=== PATIENT | male | born 1940 ===

== ENCOUNTER 2017-12-27 17:02 | Inpatient (IN) | payer OTHER, BC ==
[~2017-12-27] VITALS: Ht 172.7 cm; Wt 67.3 kg
[2017-12-27 19:15] VITALS: BP 146/60; PULSE 68; TEMP 36.4; O2SAT 98; Ht 172.7 cm; Wt 67.3 kg
[2017-12-27] MEDS ORDERED: PRAM0.1212 PO (19:56)
[2017-12-27] MEDS ORDERED: B-COCAP2 PO (19:56)
[2017-12-27] MEDS ORDERED: CARB50TA3 PO (19:56)
[2017-12-27] MEDS ORDERED: ACET-1256 PO (19:56)
[2017-12-27] MEDS ORDERED: POLY335019 PO (19:56)
[2017-12-27] MEDS ORDERED: ASPI81TA28 PO (19:56)
[2017-12-27] MEDS ORDERED: METO25TA56 PO (19:56)
[2017-12-27] MEDS ORDERED: PANT40TA PO (19:56)
[2017-12-27] MEDS ORDERED: KLN/5 PO (19:56)
[2017-12-27] MEDS ORDERED: ASCO500T16 PO (19:56)
[2017-12-27] MEDS ORDERED: CLOP1TAB5 PO (19:56)
[2017-12-27] MEDS ORDERED: LEVO25TA PO (19:56)
[2017-12-27] MEDS ORDERED: DOCU-94 PO (19:56)
[2017-12-27] MEDS ORDERED: HYD10 PO (19:56)
[2017-12-27] MEDS ORDERED: PRMT10 (19:56)
[2017-12-27] MEDS ORDERED: CHOL2000 PO (19:56)
[2017-12-27] MEDS ORDERED: ATOR-24 PO (20:20)
[2017-12-27] MEDS ORDERED: ACETAMINOPHEN 500 MG TAB PO PRN (20:30)
[2017-12-27] MEDS ORDERED: MAGNESIUM HYDROXIDE SUSP 30 ML UDC PO PRN (20:30)
[2017-12-27] MEDS ORDERED: POLYETHYLENE (MIRALAX) 17 GM PACK PO PRN (20:30)
[2017-12-27] MEDS ORDERED: ACETAMINOPHEN 325 MG TAB PO PRN (20:30)
[2017-12-27] MEDS ORDERED: ONDANSETRON INJ 2 MG/ML 2 ML VIAL IV PRN (20:30)
[2017-12-27] MEDS ORDERED: NITROGLYCERIN 0.4 MG SL PER TAB CHARGE SL PRN (20:30)
--- NOTE | 2017-12-27 20:53 | DIAGNOSTIC IMAGING REPORT ---
CHEST ONE VIEW PORTABLE HISTORY: Short of breath. CHF COMPARISON: None. FINDINGS: No pneumothorax. Trace bilateral pleural fusions. Cardiac valve prosthesis is noted. The heart is mildly enlarged. Linear density within the right midlung zone favors subsegmental atelectasis are scarring. Diffuse interstitial and vascular thickening consistent with mild pulmonary edema. IMPRESSION: Mild interstitial pulmonary edema and trace bilateral pleural effusions. Electronically signed by: Eliecer Tavares M.D. 12/27/2017 8:52 PM Dictated Date/Time: 12/27/2017 8:51 PM
[2017-12-27] MEDS ORDERED: PATIENT'S ALLERGY INFO NEEDS ENTERED SCH (21:00)
--- NOTE | 2017-12-27 21:14 | History and Physical ---
History & Physical Date & Time of Service: Dec 27, 2017 at 20:39 Chief Complaint: Fluid Overload, Dialisis Primary Care Physician: Corrine Ying D.O. History of Present Illness The patient is a 77 year old male with a past medical history of Chronic diastolic CHF, Pulmonary HTN, Pulmonary fibrosis, Maite's Granulomatosis, C Diff, Renal Failure on Hemodialysis MWF, Restless leg syndrome, Spinal Stenosis , ITP, COPD, UMER, and CAD with Cardiac arrest in October s/p stent of Circumflex Artery that presents as a direct admission from [facility] with worsening SOB after dialysis this morning. The patient states that he is normally short of breath at his baseline since his cardiac arrest in October, but that is normally with exertion. This afternoon he developed a sudden shortness of breath that was associated with deep breaths, and also caused some right sided chest pain. He is not experiencing the pain at rest, it is not reproducible, sharp in nature , does not radiate, and has persisted throughout the day. The patient has remained comfortable throughout the day on his baseline 4L of oxygen. In the ED at [facility] the patient was found to have a significantly elevated BNP along with X-rays concerning for worsening heart failure. The patient was transferred because Dialysis is not available at their facility over the weekend. The patient denies any fevers, chills, sweats, sputum productions, chest pain with exertion, or any other acute complaints. Past Medical/Surgical History Medical Problems: (1) Shortness of breath Social History Smoking Status: Never Smoker Allergies Coded Allergies: Penicillins (Unverified Allergy, Unknown, HIVES, 12/27/17) Home Medications Scheduled Ascorbic Acid (Ascorbic Acid), 300 MG PO BID Aspirin (Aspirin Ec), 81 MG PO DAILY Atorvastatin (Lipitor), 40 MG PO HS Carbidopa/Levodopa (Sinemet Cr 50MG/200MG), 1 TAB PO DAILY Cholecalciferol (Vitamin D3), 1 CAP PO DAILY Clonazepam (Klonopin), 0.25 MG PO HS Clopidogrel Bisulfate (Plavix), 1 TAB PO DAILY Docusate Sodium (Colace), 1 CAP PO BID Hydrocortisone (Cortef), 10 MG PO DAILY Levothyroxine Sodium (Synthroid), 1 TAB PO DAILY Metoprolol Tartrate (Lopressor) (Lopressor), 12.5 MG PO BID Midodrine (Midodrine HCl), TID Pantoprazole (Protonix), 40 MG PO DAILY Polyethylene Glycol 3350 (Miralax), 17 GM PO DAILY Pramipexole (Mirapex), 1 MG PO DAILY Vitamin B Cmplx/Vitc/Folic Ac (Nephrocaps), 1 CAP PO DAILY Miscellaneous Medications Acetaminophen (Tylenol), 1,000 MG PO Review of Systems Constitutional: + fatigue, No fever, No chills Respiratory: + cough, + wheezing, + shortness of breath, + dyspnea on exertion , No sputum, No dyspnea at rest Cardiovascular: + chest pain, No orthopnea, No palpitations Abdomen: No pain, No nausea, No vomiting, No diarrhea, No constipation Musculoskeletal: No joint pain, No calf pain Genitourinary - Male: No hematuria, No dysuria Neurologic: No paralysis, No weakness Integumentary: No rash, No itch Physical Exam Vital Signs Date Time Temp Pulse Resp B/P (MAP) Pulse Ox O2 Delivery O2 Flow Rate FiO2 12/27/17 19:15 36.4 68 20 146/60 98 Nasal Cannula 4.0 General Appearance: WD/WN, no apparent distress Head: normocephalic, atraumatic Eyes: normal inspection, sclerae normal Neck: supple, no carotid bruits Respiratory/Chest: chest non-tender, no respiratory distress, no accessory muscle use, + crackles (at the bases bilaterally), + wheezing Cardiovascular: regular rate, rhythm, no edema, no gallop Abdomen/GI: normal bowel sounds, non tender, soft Extremities/Musculoskelatal: no calf tenderness, no pedal edema Neurologic/Psych: alert, normal reflexes, oriented x 3 Diagnostics Laboratory Results Microbiology Results 12/27/17 MRSA DNA Surveillance Screen, Received Pending Impression Assessment and Plan The patient is a 77 year old male with a past medical history of Chronic diastolic CHF, Pulmonary HTN, Pulmonary fibrosis, Maite's Granulomatosis, C Diff, Renal Failure on Hemodialysis MWF, Restless leg syndrome, Spinal Stenosis , ITP, COPD, UMER, and CAD with Cardiac arrest in October s/p stent of Circumflex Artery that presents as a direct admission from [facility] with worsening SOB after dialysis this morning Acute Hypoxic Respiratory Failure - Admit to Telemetry - CXR - CT Chest - CBC, BMP, Mag, Phos - Duonebs CHF Exacerbation - Underlying history of Chronic Diastolic CHF - ECHO - Low Sodium Diet - BNP > 35,000 - Consult Nephrology for possible dialysis over the weekend Chest Pain - EKG: Left Anterior Fasicular Block, Normal Sinus Rhythm, No previous EKG for comparison - Troponin at previous facility 0.035, Repeat Troponin q6h x 3 - CXR and CT Chest as above Chronic Renal Failure - Nephrology Consult - BMP - Cr 3.53 - Continue home Midodrine - Continue home Hydrocortisone CAD - Continue home Aspirin, Plavix, and Metoprolol HLD - Continue home Lipitor Restless Leg Syndrome - Continue home Sinemet and Mirapex GERD - Continue home Protonix Hypothyroidism - Continue home Synthroid DVT - Heparin 5,000 units q12 Code Status - Full Resuscitation Advanced Directives Existing Living Will: No Existing Power of Code And Test Clerk: No Resuscitation Status Full Code VTE Prophylaxis Will order VTE Prophylaxis: Yes Resident Tracking Resident Involvement: Resident Care Provided Care Provided: Adult Hospital Medicine
[2017-12-27 21:17] LABS: BASO % 0.2 %; BASO ABS # 0.01 K/uL (0-0.2); EOS % 0.6 %; EOS ABS # 0.03 K/uL (0-0.5); HEMATOCRIT 36.6 % (42-52); HEMOGLOBIN 11.3 g/dL (14.0-18.0); IG# 0.01 K/uL (0.00-0.02); LYMPH % 22.4 %; MEAN CELL VOLUME 97.3 fL (80-100); MEAN CORPUSCULAR HEMOGLOBIN 30.1 pg (25-34); MEAN CORPUSCULAR HGB CONC 30.9 g/dl (32-36); MEAN PLATELET VOLUME 9.6 fL (7.4-10.4); MONO % 8.2 %; MONO ABS # 0.44 K/uL (0.11-0.59); NEUT % 68.4 %; NEUT ABS # 3.66 K/uL (1.4-6.5); PLATELET COUNT 110 K/uL (130-400); RED CELL DISTRIBUTION WIDTH CV 17.7 % (11.5-14.5); RED CELL DISTRIBUTION WIDTH SD 62.7 fL (36.4-46.3); WHITE BLOOD COUNT 5.35 K/uL (4.8-10.8)
[2017-12-27 21:50] LABS: BLOOD UREA NITROGEN 30 mg/dl (7-18); CALCIUM 8.9 mg/dl (8.5-10.1); CARBON DIOXIDE 29 mmol/L (21-32); CREATININE 4.53 mg/dl (0.60-1.40); GLUCOSE 98 mg/dl (70-99); PHOSPHORUS 3.3 mg/dl (2.5-4.9); POTASSIUM 3.9 mmol/L (3.5-5.1); SODIUM 133 mmol/L (136-145)
[2017-12-27] MEDS: CLONAZEPAM 0.5 MG TAB PO SCH (21:58)
[2017-12-27] MEDS: ASCORBIC ACID 500 MG TAB PO SCH (21:58)
[2017-12-27] MEDS: METOPROLOL TARTRATE 25 MG TAB PO SCH (21:59)
[2017-12-27] MEDS: DOCUSATE SODIUM 100 MG CAP PO SCH (21:59)
[2017-12-27] MEDS: ATORVASTATIN 40 MG TAB PO SCH (21:59)
--- NOTE | 2017-12-27 22:42 | DIAGNOSTIC IMAGING REPORT ---
(CHEST) THORAX WITHOUT CT DOSE: 226.48 mGy.cm HISTORY: Atypical Chest Pain, short of breath TECHNIQUE: Multiaxial CT images of the chest were performed without contrast. A dose lowering technique was utilized adhering to the principles of ALARA. COMPARISON: Chest 12/27/2017. FINDINGS: Mild inferior endplate compression deformity at T1. This is likely old. There are multiple healing bilateral anterior rib fractures. There are also healing fractures within the manubrium and mid sternum. No pneumothorax. The central airways are patent. Linear scarlike density along the right midlung zone. Mild diffuse interstitial thickening most pronounced at the lung bases. No pleural or pericardial effusions. The heart is mildly enlarged. Aortic valve prosthesis is noted. There are coronary artery calcifications. Focal consolidation within the right lower lobe posteriorly. This contains a few punctate calcifications. This measures approximately 4.1 cm. This is best seen on image 204. Groundglass appearance throughout the lungs. The partially visualized spleen may be mildly enlarged. The unenhanced liver and adrenal glands are unremarkable. Multiple partially visualized cyst within the right kidney. Subcentimeter left axillary lymph nodes do not meet CT criteria for pathologic involvement. There is enlarged lymph node at the left neck base measuring 1.9 x 1.4 cm. Multiple prominent mediastinal lymph nodes. However, these measure subcentimeter in short axis diameter. Normal caliber thoracic aorta. Small calcified right hilar lymph nodes. IMPRESSION: 1. Healing manubrial, external, and bilateral anterior rib fractures. No acute fractures identified. 2. No pneumothorax. 3. Mild diffuse interstitial thickening with groundglass appearance throughout the lungs. Findings favor a chronic interstitial lung disease. Developing congestive change or an atypical pneumonitis could also a similar appearance but are considered most likely. 4. Focal consolidation within the right lower lobe posteriorly. This may represent round atelectasis. A pneumonia could also have a similar appearance. 5. Multiple prominent mediastinal and left axillary lymph nodes. However, the majority of these are subcentimeter in short axis diameter. There is also a single enlarged lymph node within the left neck base. This could be due to chronic inflammatory/infectious change. A low-grade lymphoma is considered less likely but not entirely excluded. The partially visualized spleen appears be mildly enlarged. Electronically signed by: Eliecer Tavares M.D. 12/27/2017 10:41 PM Dictated Date/Time: 12/27/2017 10:30 PM
[2017-12-27 23:59] VITALS: O2SAT 98
[2017-12-28] VITALS (25 sets, daily range): BP systolic 86–138; BP diastolic 28–62; PULSE 57–99; TEMP 36.3–37.2; O2SAT 91–99
[2017-12-28 03:12] LABS: BASO % 0.2 %; BASO ABS # 0.01 K/uL (0-0.2); EOS ABS # 0.06 K/uL (0-0.5); HEMATOCRIT 35.9 % (42-52); HEMOGLOBIN 11.2 g/dL (14.0-18.0); IG# 0.01 K/uL (0.00-0.02); LYMPH % 18.4 %; LYMPH ABS # 1.13 K/uL (1.2-3.4); MEAN CORPUSCULAR HEMOGLOBIN 30.3 pg (25-34); MEAN CORPUSCULAR HGB CONC 31.2 g/dl (32-36); MONO % 9.9 %; MONO ABS # 0.61 K/uL (0.11-0.59); NEUT % 70.3 %; NEUT ABS # 4.32 K/uL (1.4-6.5); PLATELET COUNT 113 K/uL (130-400); RED CELL DISTRIBUTION WIDTH CV 17.7 % (11.5-14.5); RED CELL DISTRIBUTION WIDTH SD 63.1 fL (36.4-46.3); WHITE BLOOD COUNT 6.14 K/uL (4.8-10.8)
[2017-12-28 03:24] LABS: INR 1.1 (0.9-1.1)
[2017-12-28 03:44] LABS: CALCIUM 8.5 mg/dl (8.5-10.1); CREATININE 5.07 mg/dl (0.60-1.40); POTASSIUM 3.8 mmol/L (3.5-5.1)
[2017-12-28] MEDS: LEVOTHYROXINE 25 MCG TAB PO SCH (06:18)
[2017-12-28] MEDS: MIDODRINE 10 MG TAB PO SCH ×3 (06:18→17:13)
[2017-12-28] MEDS: ALBUT/IPRATROP 3MG/0.5MG NEB 3 ML VIAL INH SCH ×4 (07:05→18:52)
[2017-12-28] MEDS: ASPIRIN 81 MG ECTAB PO SCH (07:52)
[2017-12-28] MEDS: NEPHROCAPS PO SCH (07:53)
[2017-12-28] MEDS: METOPROLOL TARTRATE 25 MG TAB PO SCH ×2 (07:53→23:11)
[2017-12-28] MEDS: DOCUSATE SODIUM 100 MG CAP PO SCH ×2 (07:54→22:35)
[2017-12-28] MEDS: ASCORBIC ACID 500 MG TAB PO SCH ×2 (07:54→22:36)
[2017-12-28] MEDS: PANTOprazole SOD 40 MG TAB PO SCH (07:54)
[2017-12-28] MEDS: CARBIDOPA/LEVODOPA 50/200MG EXT REL TAB PO SCH (07:54)
[2017-12-28] MEDS: HYDROCORTISONE 10 MG TAB PO SCH (07:54)
[2017-12-28] MEDS: PRAMIPEXOLE DIHYDROCHLORIDE 0.5 MG TAB PO SCH (07:55)
[2017-12-28] MEDS: CLOPIDOGREL BISULFATE 75 MG TAB PO SCH (07:55)
[2017-12-28] MEDS: HEPARIN SOD 5000 UNIT/0.5 ML CARP SQ SCH ×2 (09:17→22:47)
[2017-12-28] MEDS ORDERED: HEPARIN SOD (PORCINE) 1000 UNIT/ML 10 ML VIAL IV ONE (10:00)
--- NOTE | 2017-12-28 10:06 | ECHOCARDIOGRAM REPORT ---
*NOTICE TO RECEIVING DEMOCRAT AGENCY This information is strictly Confidential and protected under [place] law. [place] law prohibits you from making any further disclosure of this information unless further disclosure is expressly permitted by the written consent of the person to whom it pertains or is authorized by law. A general authorization for the release of medical or other information is not sufficient for this purpose. Hospital accepts no responsibility if the information is made available to any other person, INCLUDING THE PATIENT. Interpretation Summary * Name: MEGAN GROSS Study Date: 12/28/2017 06:24 AM * Patient Location: 2E\S\E203\S\1 * : 1940 (M/d/yyyy) Gender: Male * Age: 77 yrs Ethnicity: DC * Ordering Physician: Alferdito English * Referring Physician: Torie Diaz * Performed By: Kori Garcia RDCS * * -- Conclusions -- * There is mild concentric left ventricular hypertrophy. * Left ventricular systolic function is normal. * Moderate diastolic dysfunction * There is moderate mitral regurgitation. * Right ventricular systolic pressure is elevated at 50-60mmHg. * There is a percutaneous bioprosthetic aortic valve (Medtronic CoreValve) * The the gradients across the valve are moderately elevated * There is mild to moderate perivalvular regurgitation Procedure Details * A complete two-dimensional transthoracic echocardiogram was performed (2D, M-mode, Doppler and color flow Doppler). Left Ventricle * The left ventricle is normal in size. * There is mild concentric left ventricular hypertrophy. * Ejection Fraction = 60-65%. * Left ventricular systolic function is normal. * Moderate diastolic dysfunction * The left ventricular wall motion is normal. Right Ventricle * The right ventricle is normal in size and function. Atria * The left atrial size is normal. * Right atrial size is normal. Mitral Valve * The mitral valve leaflets appear thickened, but open well. * There is moderate mitral regurgitation. Tricuspid Valve * The tricuspid valve is not well visualized, but is grossly normal. * There is mild tricuspid regurgitation. * Right ventricular systolic pressure is elevated at 50-60mmHg. Aortic Valve * There is a percutaneous bioprosthetic aortic valve (Medtronic CoreValve) The the gradients across the valve are moderately elevated There is mild to moderate perivalvular regurgitation Pulmonic Valve * The pulmonic valve is not well seen, but is grossly normal. Great Vessels * The aortic root is normal size. Pericardium/Pleural * There is no pericardial effusion. Great Vessels * Borderline dilation of the inferior vena cava MMode 2D Measurements and Calculations IVSd 1.2 cm IVSs 1.5 cm LVIDd 4.7 cm LVIDs 3.1 cm LVPWd 1.6 cm LVPWs 1.9 cm IVS/LVPW 0.76 FS 35.2 % EDV(Teich) 103.9 ml ESV(Teich) 36.9 ml EF(Teich) 64.5 % EDV(cubed) 105.8 ml ESV(cubed) 28.8 ml EF(cubed) 72.8 % % IVS thick 26.0 % % LVPW thick 22.3 % LV mass(C)d 260.5 grams LV mass(C)dI 149.5 grams/m\S\2 LV mass(C)s 201.9 grams LV mass(C)sI 115.8 grams/m\S\2 SV(Teich) 67.0 ml SI(Teich) 38.5 ml/m\S\2 SV(cubed) 77.0 ml SI(cubed) 44.2 ml/m\S\2 Ao root diam 3.0 cm Ao root area 7.0 cm\S\2 ACS 1.4 cm LA dimension 3.8 cm LA/Ao 1.3 LVAd ap4 33.6 cm\S\2 LVLd ap4 8.8 cm EDV(MOD-sp4) 109.8 ml EDV(sp4-el) 109.0 ml LVAs ap4 17.5 cm\S\2 LVLs ap4 7.9 cm ESV(MOD-sp4) 34.1 ml ESV(sp4-el) 33.0 ml EF(MOD-sp4) 68.9 % EF(sp4-el) 69.8 % LVAd ap2 29.9 cm\S\2 LVLd ap2 8.9 cm EDV(MOD-sp2) 86.1 ml EDV(sp2-el) 85.4 ml LVAs ap2 17.7 cm\S\2 LVLs ap2 8.0 cm ESV(MOD-sp2) 37.2 ml ESV(sp2-el) 33.5 ml EF(MOD-sp2) 56.7 % EF(sp2-el) 60.7 % LVLd %diff 1.4 % EDV(MOD-bp) 97.5 ml LVLs %diff 0.54 % ESV(MOD-bp) 35.3 ml EF(MOD-bp) 63.8 % SV(MOD-sp4) 75.7 ml SI(MOD-sp4) 43.4 ml/m\S\2 SV(MOD-sp2) 48.8 ml SI(MOD-sp2) 28.0 ml/m\S\2 SV(MOD-bp) 62.2 ml SI(MOD-bp) 35.7 ml/m\S\2 SV(sp4-el) 76.0 ml SI(sp4-el) 43.6 ml/m\S\2 SV(sp2-el) 51.9 ml SI(sp2-el) 29.8 ml/m\S\2 Doppler Measurements and Calculations MV E max alexsandra 146.7 cm/sec MV A max alexsandra 79.8 cm/sec MV E/A 1.8 MV dec time 0.22 sec Ao V2 max 335.6 cm/sec Ao max PG 45.3 mmHg Ao max PG (full) 35.9 mmHg AI max alexsandra 273.7 cm/sec AI max PG 30.0 mmHg AI dec slope 161.6 cm/sec\S\2 AI P1/2t 496.2 msec LV V1 max PG 9.4 mmHg LV V1 max 153.1 cm/sec MR max alexsandra 543.5 cm/sec MR max PG 118.2 mmHg MR mean alexsandra 415.4 cm/sec MR mean PG 74.9 mmHg MR VTI 183.2 cm PA V2 max 72.2 cm/sec PA max PG 2.1 mmHg TR max alexsandra 320.5 cm/sec
--- NOTE | 2017-12-28 10:33 | Nephrology Consultation ---
Nephrology Consultation Date & Providers Date of Consultation: Dec 28, 2017. Primary Care Provider: Corrine Ying D.O. Referring Provider: Reason for Consultation ESRD History of Present Illness Mr. 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 Sukhdeep has been on dialysis for 12 years. He receives dialysis at [facility] on a MWF schedule. The patient completed his treatment yesterday as scheduled. Unfortunately, he noted worsening shortness of breath and right sided chest pain during treatment. He was admitted to [facility] for additional evaluation. The patient was transferred from [facility] due to potential need for dialysis which could not be provided at . I spoke with nursing staff at [facility] this morning. EDW has cameron 64.5 kg. The patient presented to the unit at 64.4 kg yesterday. UF was 0. No fluid was removed on Saturday either. Nursing notes that due to chronic hypotension, Sukhdeep does not tolerate fluid removal well. Midodrine has been prescribed but the patient does occasionally forget to take the medication. Sukhdeep denies significant shortness of breath prior to yesterday. He describes a fairly rapid and progressive onset of symptoms. Chest pain was right sided and pleuritic. He has had similar episodes of chest pain in the past but none in the past several months. He denies significant orthopnea. He denies fevers or chills. Sukhdeep was admitted to [facility] for 24 days in October with cardiac arrest. PCI to circumflex was performed. The patient is currently in cardiac rehab. Medical history is notable for chronic diastolic CHF, pulmonary hypertension, chronic lung disease attributed to chronic interstitial disease, documented COPD and asbestos exposure, granulomatosis with polyangiitis, ESRD, Parkinson disease, spinal stenosis. Sukhdeep receives dialysis at [facility] on a MWF schedule. Typical treatment is 3.5 hours. He has a functional LUE AVF. Dialysis is complicated by intradialytic hypotension. Past Medical/Surgical History Medical: Recurrent pneumonia Coronary artery disease Reported diastolic CHF Documented pulmonary hypertension ESRD on HD Granulomatosis with polyangiitis Parkinsonism Autonomic insufficiency Interstitial lung disease Chronic hypoxia, O2 4 L at baseline Hypothyroidism UMER COPD Surgical: cardiac PCI, AVF Allergies Coded Allergies: Penicillins (Unverified Allergy, Unknown, HIVES, 12/27/17) Inpatient Medications Current Inpatient Medications Medications (Trade) Dose Ordered Sig/Crys Route Start Time Stop Time Status Last Admin Dose Admin Magnesium Hydroxide (Milk Of Magnesia Susp) 30 ml Q12H PRN PO 12/27/17 20:30 01/26/18 20:29 Ondansetron HCl (Zofran Inj) 4 mg Q6H PRN IV 12/27/17 20:30 01/26/18 20:29 Nitroglycerin (Nitrostat Tab) 0.4 mg UD PRN SL 12/27/17 20:30 01/26/18 20:29 Polyethylene (Miralax Powder Packet) 17 gm DAILY PRN PO 12/27/17 20:30 01/26/18 20:29 Acetaminophen (Tylenol Tab) 1,000 mg Q8H PRN PO 12/27/17 20:30 01/26/18 20:29 Ascorbic Acid (Vitamin C Tab) 500 mg BID PO 12/27/17 21:00 01/26/18 20:59 12/28/17 07:54 500 MG Aspirin (Ecotrin Tab) 81 mg DAILY PO 12/28/17 09:00 01/27/18 08:59 12/28/17 07:52 81 MG Atorvastatin Calcium (Lipitor Tab) 40 mg HS PO 12/27/17 21:00 01/26/18 20:59 12/27/17 21:59 40 MG Carbidopa/Levodopa (Sinemet Cr 50/ 200MG Tab) 1 tab DAILY PO 12/28/17 09:00 01/27/18 08:59 12/28/17 07:54 1 TAB Clonazepam (Klonopin Tab) 0.25 mg HS PO 12/27/17 21:00 01/26/18 20:59 12/27/17 21:58 0.25 MG Clopidogrel Bisulfate (plAVix TAB) 75 mg DAILY PO 12/28/17 09:00 01/27/18 08:59 12/28/17 07:55 75 MG Docusate Sodium (coLACE CAP) 100 mg BID PO 12/27/17 21:00 01/26/18 20:59 12/28/17 07:54 100 MG Hydrocortisone (Cortef Tab) 10 mg DAILY PO 12/28/17 09:00 01/27/18 08:59 12/28/17 07:54 10 MG Levothyroxine Sodium (Synthroid Tab) 25 mcg DAILYBB PO 12/28/17 06:00 01/27/18 05:59 12/28/17 06:18 25 MCG Metoprolol Tartrate (Lopressor Tab) 12.5 mg BID PO 12/27/17 21:00 01/26/18 20:59 12/28/17 07:53 12.5 MG Midodrine (Proamatine Tab) 10 mg TID@0600,1200,1800 PO 12/28/17 06:00 01/27/18 05:59 12/28/17 06:18 10 MG Pantoprazole Sodium (Protonix Tab) 40 mg DAILY PO 12/28/17 09:00 01/27/18 08:59 12/28/17 07:54 40 MG Pramipexole Dihydrochloride (miraPEX TAB) 1 mg DAILY PO 12/28/17 09:00 01/27/18 08:59 12/28/17 07:55 1 MG Vitamin B Complex/ Vit C/Folic Acid (Nephrocaps) 1 cap DAILY PO 12/28/17 09:00 01/27/18 08:59 12/28/17 07:53 1 CAP Albuterol/ Ipratropium (Duoneb) 3 ml QIDR INH 12/28/17 08:00 01/27/18 07:59 12/28/17 07:05 3 ML Heparin Sodium (Porcine) (Heparin Sq 5000 Unit/0.5ml) 5,000 unit Q12 SQ 12/28/17 09:00 01/27/18 08:59 12/28/17 09:17 5,000 UNIT Social History Smoking Status: Never Smoker suffering from dementia Review of Systems A complete review of systems was performed. Pertinent positives are noted above. All other systems are negative. Physical Exam Date Time Temp Pulse Resp B/P (MAP) Pulse Ox O2 Delivery O2 Flow Rate FiO2 12/28/17 08:00 71 12/28/17 08:00 96 Nasal Cannula 4.0 12/28/17 07:01 66 18 97 Nasal Cannula 4.0 12/28/17 06:49 37.2 66 12 124/62 (82) 95 12/28/17 03:59 36.8 66 16 124/62 (82) 98 4.0 12/28/17 00:29 122/56 (78) 12/28/17 00:03 37.1 57 18 103/38 (59) 99 4.0 12/27/17 23:59 98 Nasal Cannula 4.0 12/27/17 19:15 36.4 68 20 146/60 98 Nasal Cannula 4.0 General Appearance: no apparent distress, + thin Head: normocephalic, atraumatic Eyes: normal inspection, sclerae normal ENT: normal ENT inspection, pharynx normal Neck: supple, no JVD Respiratory/Chest: no respiratory distress, no accessory muscle use, + rales Cardiovascular: regular rate, rhythm, no gallop Abdomen/GI: non tender, soft, + splenomegaly Extremities/Musculoskelatal: normal inspection, no pedal edema, + pertinent finding (LUE BC AVF with thrill and bruit) Neurologic/Psych: alert, normal mood/affect Laboratory Results Last 24 Hours Test 12/27/17 20:58 12/28/17 02:59 12/28/17 03:04 12/28/17 09:05 White Blood Count 5.35 K/uL 6.14 K/uL Red Blood Count 3.76 M/uL 3.70 M/uL Hemoglobin 11.3 g/dL 11.2 g/dL Hematocrit 36.6 % 35.9 % Mean Corpuscular Volume 97.3 fL 97.0 fL Mean Corpuscular Hemoglobin 30.1 pg 30.3 pg Mean Corpuscular Hemoglobin Concent 30.9 g/dl 31.2 g/dl Platelet Count 110 K/uL 113 K/uL Mean Platelet Volume 9.6 fL 10.0 fL Neutrophils (%) (Auto) 68.4 % 70.3 % Lymphocytes (%) (Auto) 22.4 % 18.4 % Monocytes (%) (Auto) 8.2 % 9.9 % Eosinophils (%) (Auto) 0.6 % 1.0 % Basophils (%) (Auto) 0.2 % 0.2 % Neutrophils # (Auto) 3.66 K/uL 4.32 K/uL Lymphocytes # (Auto) 1.20 K/uL 1.13 K/uL Monocytes # (Auto) 0.44 K/uL 0.61 K/uL Eosinophils # (Auto) 0.03 K/uL 0.06 K/uL Basophils # (Auto) 0.01 K/uL 0.01 K/uL RDW Standard Deviation 62.7 fL 63.1 fL RDW Coefficient of Variation 17.7 % 17.7 % Immature Granulocyte % (Auto) 0.2 % 0.2 % Immature Granulocyte # (Auto) 0.01 K/uL 0.01 K/uL Sodium Level 133 mmol/L 135 mmol/L Potassium Level 3.9 mmol/L 3.8 mmol/L Chloride Level 95 mmol/L 96 mmol/L Carbon Dioxide Level 29 mmol/L 29 mmol/L Anion Gap 9.0 mmol/L 10.0 mmol/L Blood Urea Nitrogen 30 mg/dl 35 mg/dl Creatinine 4.53 mg/dl 5.07 mg/dl Est Creatinine Clear Calc Drug Dose 12.0 ml/min 10.7 ml/min Estimated GFR () 13.3 11.6 Estimated GFR (Non- 11.5 10.0 BUN/Creatinine Ratio 6.6 6.8 Random Glucose 98 mg/dl 85 mg/dl Calcium Level 8.9 mg/dl 8.5 mg/dl Phosphorus Level 3.3 mg/dl Magnesium Level 2.3 mg/dl Troponin I 0.025 ng/ml 0.020 ng/ml Pro-B-Type Natriuretic Peptide > 79020 pg/ml Prothrombin Time 11.5 SECONDS Prothromb Time International Ratio 1.1 Impression (1) ESRD (end stage renal disease) on dialysis (2) Anemia (3) Shortness of breath (4) Chest pain (5) Coronary artery disease (6) Hypotension (7) Autonomic instability (8) Chronic lung disease (9) Granulomatosis with polyangiitis with renal involvement Mr. Maier is a 77 year-old male with coronary artery disease, chronic heart failure, pulmonary hypertension, chronic interstitial lung disease and scarring, history of granulomatosis with polyangiitis, ESRD attributed to GPA, hypothyroidism, Parkinsonism, autonomic insufficiency, and recurrent pneumonia. He was admitted to [facility] with chest pain and shortness of breath. CXR and CT of the chest were personally reviewed. The patient describes right sided pleuritic chest pain. Shortness of breath improved slightly since yesterday with bronchodilators. Additional records regarding the patient's history of chronic lung disease will be necessary. Review of the CT scan is notable for significant chronic changes and scarring. Adenopathy and splenomegaly also noted. A possible evolving RML pneumonia cannot be excluded. Interstitial changes are notable. Blood pressure and volume status appears appropriate. UF with HD complicated by intradialytic hypotension. The patient is maintained on midodrine. An additional HD treatment will be provided today for fluid removal. However, clinical assessment is not entirely consistent with volume overload. Recommendations ESRD: -- HD today for additional UF as tolerated, orders entered into EMR and communicated to HD nurse clinical applications specialist -- 3 hours, 3K -- Renal diet -- Document I/O's and daily metabolic profile -- EDW reported at 64.5 kg Hypotension: -- Midodrine 10 mg preHD Anemia: -- Chronic, stable -- No need for additional KENDRA Chronic lung disease: -- Obtain outside records
[2017-12-28] MEDS ORDERED: OPTIRAY 320 IV PRN (15:00)
--- NOTE | 2017-12-28 15:44 | DIAGNOSTIC IMAGING REPORT ---
CHEST CTA for PULMONARY ARTERIES CT DOSE: 353.52 mGy.cm HISTORY: Short of breath. Atypical chest pain. Assess for pulmonary embolus. TECHNIQUE: Multiaxial CT images of the chest were performed following the intravenous administration of contrast to evaluate the pulmonary arteries. Maximal intensity projection images were also obtained. A dose lowering technique was utilized adhering to the principles of ALARA. COMPARISON STUDY: Chest CT 12/27/2017. FINDINGS: There again noted healing manubrial, sternal, and bilateral anterior rib fractures. Cholelithiasis. The visualized liver, spleen, and adrenal glands are unremarkable. Multiple cysts seen throughout the atrophic kidneys. A few mildly enlarged mediastinal and left axillary lymph nodes are again noted. There is also an enlarged lymph node within the left neck base measuring 1.9 x 1.4 cm. This remains unchanged. The heart is enlarged. Trace bilateral pleural effusions, unchanged. Aortic valve prosthesis is again noted. No pneumothorax. The central airways are patent. Linear scarlike density within the right midlung zone is again noted. There is diffuse interstitial thickening and a groundglass appearance throughout the lungs. This is most pronounced at the lung bases. Stable focal consolidation within the right lower lobe posteriorly. This contains a few punctate calcifications. The more focal component of this consolidation measures approximately 4.1 cm in length. Normal caliber thoracic aorta with no evidence for dissection. A few small calcified right hilar lymph nodes. Suboptimal evaluation of some of the left lower lobe and lingular segmental and subsegmental pulmonary arteries due to the respiratory motion artifact. However, no definite filling defects within the pulmonary arteries to suggest pulmonary embolus. IMPRESSION: 1. No evidence for pulmonary embolus with limitations as described above. 2. Otherwise, no significant change compared to the prior study. 3. Healing manubrial, sternal, and bilateral anterior rib fractures. No pneumothorax. 3. Mild diffuse interstitial thickening with groundglass appearance throughout the lungs. This may represent a chronic initial lung disease. Mild pulmonary edema or an atypical pneumonitis could also have a similar appearance. 4. No change in the focal consolidation within the right lower lobe posteriorly. This favors round atelectasis. A pneumonia could also a similar appearance. 6. Stable prominent mediastinal and left axillary lymph nodes. Electronically signed by: Eliecer Tavares M.D. 12/28/2017 3:42 PM Dictated Date/Time: 12/28/2017 3:30 PM
[2017-12-28 15:55] LABS: BASO % 0.1 %; BASO ABS # 0.01 K/uL (0-0.2); EOS % 0.3 %; EOS ABS # 0.02 K/uL (0-0.5); HEMATOCRIT 41.9 % (42-52); HEMOGLOBIN 13.2 g/dL (14.0-18.0); IG# 0.07 K/uL (0.00-0.02); LYMPH % 47.9 %; LYMPH ABS # 3.72 K/uL (1.2-3.4); MEAN CELL VOLUME 96.5 fL (80-100); MEAN CORPUSCULAR HEMOGLOBIN 30.4 pg (25-34); MEAN PLATELET VOLUME 10.1 fL (7.4-10.4); MONO % 3.6 %; MONO ABS # 0.28 K/uL (0.11-0.59); NEUT % 47.2 %; NEUT ABS # 3.66 K/uL (1.4-6.5); PLATELET COUNT 149 K/uL (130-400); RED CELL DISTRIBUTION WIDTH CV 17.8 % (11.5-14.5); RED CELL DISTRIBUTION WIDTH SD 63.6 fL (36.4-46.3); WHITE BLOOD COUNT 7.76 K/uL (4.8-10.8)
[2017-12-28 16:00] LABS: MEAN CORPUSCULAR HGB CONC 31.5 g/dl (32-36)
[2017-12-28] MEDS ORDERED: HYDROCORTISONE 10 MG TAB PO ONE (16:00)
[2017-12-28 16:26] LABS: ALKALINE PHOSPHATASE 117 U/L (45-117); ALT/SGPT 6 U/L (12-78); AST/SGOT 18 U/L (15-37); BLOOD UREA NITROGEN 44 mg/dl (7-18); CALCIUM 8.7 mg/dl (8.5-10.1); CARBON DIOXIDE 25 mmol/L (21-32); CREATININE 6.26 mg/dl (0.60-1.40); GLUCOSE 138 mg/dl (70-99); POTASSIUM 4.4 mmol/L (3.5-5.1); SODIUM 133 mmol/L (136-145)
[2017-12-28] MEDS ORDERED: LEVOFLOXACIN 750MG / D5W IV ONE (18:00)
[2017-12-28] MEDS ORDERED: AZTREONAM 2000 MG in DEXTROSE 5% 100 ML IV ONE (18:00)
[2017-12-28] MEDS ORDERED: AZTREONAM CONSULT ACTIVE PRN (18:00)
[2017-12-28] MEDS ORDERED: LEVOFLOXACIN CONSULT ACTIVE PRN (18:00)
--- NOTE | 2017-12-28 18:46 | Progress Note ---
Progress Note Date of Service Dec 28, 2017. Progress Note Code purple note - late entry: Responded to code purple earlier this afternoon. Pt had gone to the CT scanner for CTA chest, PE protocol, due to right-sided pleuritic chest discomfort. Per staff he underwent the CTA without apparent reaction to the IV contrast and had finished the study. He was being helped up to a sitting position on the CT scanner table when he reported feeling dizzy, weak, and fatigued. Staff lowered him back down to the table in a supine position. He never lost consciousness, never lost his pulse, fingerstick blood sugar was > 100, and O2 sats were found to be in the 80s on 4 L NC. My initial exam while he was in CT - gen - weak appearing, modestly pale heart - tachy, irregular lungs - rales bases ext - no edema, pulses 2+ b/l While examining him he complained of "chest pressure" in the central region of the chest. This was DIFFERENT from the right-sided chest pain he had had earlier in the day. Without any specific intervention the pressure self-resolved even before leaving the CT scan room. Vitals continued to be stable. He received about a 250cc bolus of NS with improvement in BP from high 90s to the low 120s. EKG - my reading - sinus tach, ectopy, new T wave inversions I/AVL and modest ST segment depression anterolateral leads CTA chest ultimately returned with NO PE but he continues to have a focal RLL infiltrate Imp: Near-syncope EKG changes in patient with known CAD chest pain and chest pressure Plan: return patient to telemetry will repeat his EKG upon return to his room serial troponins recheck cbc, bmp, lfts check lactate and procalcitonin low threshold for starting IV antibiotics for possible RLL pneumonia I updated Dr. Campa from nephrology. Will also plan on involving cardiology in his care. total time about 60 minutes critical care Renato Garcia MD [id number]
--- NOTE | 2017-12-28 19:59 | Progress Note ---
Subjective Date of Service: Dec 28, 2017. Subjective Pt evaluation today including: conversation w/ patient, conversation w/ family (son by phone), physical exam, chart review, lab review, review of studies (CT chest x 2 / echo), conversation w/ remediation bioanalytics consultant (nephrology, cardiology), review of inpatient medication list Pain: chest pain - pleuritic - right side - but improved today PO Intake: fair patient reports his dyspnea and right-sided pleuritic chest pain started yesterday AFTER hemodialysis in [place] he denies anorexia or feeling ill over the past week denies fever he has a hard time remembering all the details of his 3-week hospital stay in [place] in October/November of this year he can recall he had a cardiac arrest lasting 17 minutes before mosque of circulation please see separate code purple note from today telemetry overnight - ?brief runs of a. fib; otherwise NSR, sinus tach, ectopy late in the day (about 1945) I spoke with pt's son, Irving, by phone he reported he follows with a transplant doctor in [place] but the transplant failed after 1 year his son also mentioned that one time in a [place] he "had a really bad reaction after getting dye" (for a CT scan) his son can't recall the details (he couldn't say if his father had gotten rash , angioedema, etc) patient reports he follows with a senior cobol developer in [place] but he can't remember why he does remember he has been on [place] O2 for about 1 year lastly, patient recalls having a. fib "a long time ago" and thinks he took medication to control it Review of Systems Constitutional: + fatigue, No fever, No chills Respiratory: + shortness of breath Cardiac: + see HPI, + chest pain, No orthopnea, No PND, No edema Abdomen: No pain, No nausea, No vomiting Objective Vital Signs Date Time Temp Pulse Resp B/P (MAP) Pulse Ox O2 Delivery O2 Flow Rate FiO2 12/28/17 07:01 66 18 97 Nasal Cannula 4.0 12/28/17 06:49 37.2 66 12 124/62 (82) 95 12/28/17 03:59 36.8 66 16 124/62 (82) 98 4.0 12/28/17 00:29 122/56 (78) 12/28/17 00:03 37.1 57 18 103/38 (59) 99 4.0 12/27/17 23:59 98 Nasal Cannula 4.0 12/27/17 19:15 36.4 68 20 146/60 98 Nasal Cannula 4.0 Physical Exam General Appearance: no apparent distress, + thin ENT: pharynx normal Neck: + JVD Respiratory/Chest: no respiratory distress, no accessory muscle use, + crackles (mild, right base) Cardiovascular: regular rate, rhythm, no gallop, + systolic murmur (2/6 LSB) Abdomen: normal bowel sounds, non tender, soft, no organomegaly Extremities: no pedal edema Neurologic/Psychiatric: alert, + pertinent finding (mild confusion) Skin: + pertinent finding (AV fistula, left arm, with positive thrill ) Laboratory Results Last 24 Hours Test 12/27/17 20:58 12/28/17 02:59 12/28/17 03:04 White Blood Count 5.35 K/uL 6.14 K/uL Red Blood Count 3.76 M/uL 3.70 M/uL Hemoglobin 11.3 g/dL 11.2 g/dL Hematocrit 36.6 % 35.9 % Mean Corpuscular Volume 97.3 fL 97.0 fL Mean Corpuscular Hemoglobin 30.1 pg 30.3 pg Mean Corpuscular Hemoglobin Concent 30.9 g/dl 31.2 g/dl Platelet Count 110 K/uL 113 K/uL Mean Platelet Volume 9.6 fL 10.0 fL Neutrophils (%) (Auto) 68.4 % 70.3 % Lymphocytes (%) (Auto) 22.4 % 18.4 % Monocytes (%) (Auto) 8.2 % 9.9 % Eosinophils (%) (Auto) 0.6 % 1.0 % Basophils (%) (Auto) 0.2 % 0.2 % Neutrophils # (Auto) 3.66 K/uL 4.32 K/uL Lymphocytes # (Auto) 1.20 K/uL 1.13 K/uL Monocytes # (Auto) 0.44 K/uL 0.61 K/uL Eosinophils # (Auto) 0.03 K/uL 0.06 K/uL Basophils # (Auto) 0.01 K/uL 0.01 K/uL RDW Standard Deviation 62.7 fL 63.1 fL RDW Coefficient of Variation 17.7 % 17.7 % Immature Granulocyte % (Auto) 0.2 % 0.2 % Immature Granulocyte # (Auto) 0.01 K/uL 0.01 K/uL Sodium Level 133 mmol/L 135 mmol/L Potassium Level 3.9 mmol/L 3.8 mmol/L Chloride Level 95 mmol/L 96 mmol/L Carbon Dioxide Level 29 mmol/L 29 mmol/L Anion Gap 9.0 mmol/L 10.0 mmol/L Blood Urea Nitrogen 30 mg/dl 35 mg/dl Creatinine 4.53 mg/dl 5.07 mg/dl Est Creatinine Clear Calc Drug Dose 12.0 ml/min 10.7 ml/min Estimated GFR () 13.3 11.6 Estimated GFR (Non- 11.5 10.0 BUN/Creatinine Ratio 6.6 6.8 Random Glucose 98 mg/dl 85 mg/dl Calcium Level 8.9 mg/dl 8.5 mg/dl Phosphorus Level 3.3 mg/dl Magnesium Level 2.3 mg/dl Troponin I 0.025 ng/ml 0.020 ng/ml Pro-B-Type Natriuretic Peptide > 64536 pg/ml Prothrombin Time 11.5 SECONDS Prothromb Time International Ratio 1.1 Assessment and Plan Complicated 77yo male with: 1. s/p code purple today - his symptoms were that of near-syncope. He never developed rash, urticaria, angioedema, or significant hypotension. His BP was in the 90s during the event which is where his BP was prior to the CT scan. The event could have been coincidental with the time of the contrast load. If this was a contrast reaction it certainly was atypical. His son recalls his father having had something happening to him post-contrast in [place]. I will attempt to discuss this with a radiologist prior to labeling him as contrast allergic. If indeed the patient is septic from pneumonia this may have been a presyncopal event in the setting of such. 2. possible sepsis 2nd to right-sided pneumonia - blood cx's at [facility] are thus far negative. Lactate and procalcitonin are mildly high. Will treat for presumed pneumonia with aztreonam and levaquin (due to PCN allergy). Defer on MRSA coverage as [employer] swab is negative. 3. abnormal EKG, chest pressure, h/o CAD - during the code purple today the patient had chest pressure and EKG during that event showed T wave inversions in I/AVL and ST segment depressions in the anterolateral leads. The pressure resolved on its own and a repeat EKG showed resolution of these changes. ECHO today shows no WMA. I spoke with Dr. Helton who will see him in consult tomorrow. Serial troponins; defer on heparin infusion unless he has recurrent symptoms, recurrent ST segment changes, or his troponin rises significantly. Otherwise cont asa, plavix, statin, etc. 4. chronic hypoxic respiratory failure on home O2 - exact etiology of his need for home O2? Pulmonary HTN? Pulmonary fibrosis? I am uncertain if the chronic cortef use is for pulmonary fibrosis or some other condition. Either way, in light of #2, will give 30mg of additional cortef today. 5. 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 6. possible acute/chronic diastolic CHF - will receive additional HD today. 7. h/o ITP - noted - repeat platelets later today were acceptable. 8. COPD - w/o exacerbation at this time. 9. hypothyroidism - continue synthroid; await [place] records to see what most recent TSH was. 10. CAD s/p left circumflex stent by history - await records, see above discussion, cardiology consult. 11. DVT proph - heparin BID. 12. chronic relative hypotension - cont midodrine TID. 13. possible runs of PAF - will have cardiology weigh in on this; if these are truly PAF runs then anticoagulation would be indicated. cont tele status. son, Irving, updated by phone total time today over multiple visits nearly 90 minutes including speaking with several consultants, reviewing records, calling [facility] for blood cx results, code purple, etc Continued [facility] stay due to: abnormal vital signs, ambulation difficulties, multiple IV medications needed Discharge planning: uncertain
[2017-12-28] MEDS: CLONAZEPAM 0.5 MG TAB PO SCH (21:00)
--- NOTE | 2017-12-28 21:40 | Dialysis Progress Note ---
Hemodialysis Note Date of Service Dec 28, 2017. Chief Complaint ESRD Subjective Patient was seen and evaluated during hemodialysis procedure. Intradialytic hypotension noted. Dialysate temp dropped to 36. Patient otherwise hemodynamically stable. UF goal maintained. Qb appropriate. Review of Systems A complete review of systems was performed. Pertinent positives are noted above. All other systems are negative. Vital Signs Last 8 Hrs Date Time Temp Pulse Resp B/P (MAP) Pulse Ox O2 Delivery O2 Flow Rate FiO2 12/28/17 21:30 77 110/51 12/28/17 21:15 73 138/57 12/28/17 21:00 79 106/54 12/28/17 20:45 79 117/55 12/28/17 20:30 79 100/46 12/28/17 20:15 83 99/46 12/28/17 20:00 87 86/41 12/28/17 19:45 89 110/52 12/28/17 19:30 85 95/28 12/28/17 19:15 83 100/43 12/28/17 19:00 80 97/45 12/28/17 18:53 77 20 91 Nasal Cannula 4.0 12/28/17 18:46 36.7 79 114/55 (74) 12/28/17 14:45 68 18 97 Nasal Cannula 4.0 I & O 24-Hour Column 12/29/17 08:00 Intake Total 520 ml Balance 520 ml Last Recorded Weight Weight (Kilograms): 67.600 Physical Exam General Appearance: no apparent distress, + thin Eyes: sclerae normal Cardiovascular: regular rate, rhythm Social History suffering from dementia Laboratory Results Past 24 Hours 12/28/17 03:04 Red Blood Count 3.70, Mean Corpuscular Volume 97.0, Mean Corpuscular Hemoglobin 30.3, Mean Corpuscular Hemoglobin Concent 31.2, Mean Platelet Volume 10.0, Neutrophils (%) (Auto) 70.3, Lymphocytes (%) (Auto) 18.4, Monocytes (%) (Auto) 9.9, Eosinophils (%) (Auto) 1.0, Basophils (%) (Auto) 0.2, Neutrophils # (Auto) 4.32, Lymphocytes # (Auto) 1.13, Monocytes # (Auto) 0.61, Eosinophils # (Auto) 0.06, Basophils # (Auto) 0.01 12/28/17 15:42 Red Blood Count 4.34, Mean Corpuscular Volume 96.5, Mean Corpuscular Hemoglobin 30.4, Mean Corpuscular Hemoglobin Concent 31.5, Mean Platelet Volume 10.1, Neutrophils (%) (Auto) 47.2, Lymphocytes (%) (Auto) 47.9, Monocytes (%) (Auto) 3.6, Eosinophils (%) (Auto) 0.3, Basophils (%) (Auto) 0.1, Neutrophils # (Auto) 3.66, Lymphocytes # (Auto) 3.72, Monocytes # (Auto) 0.28, Eosinophils # (Auto) 0.02, Basophils # (Auto) 0.01 12/28/17 02:59 12/28/17 15:42 Test 12/28/17 02:59 12/28/17 03:04 12/28/17 09:05 12/28/17 11:58 Anion Gap 10.0 mmol/L (3-11) Est Creatinine Clear Calc Drug Dose 10.7 ml/min Estimated GFR () 11.6 Estimated GFR (Non- 10.0 BUN/Creatinine Ratio 6.8 (10-20) Calcium Level 8.5 mg/dl (8.5-10.1) Troponin I 0.020 ng/ml (0-0.045) 0.023 ng/ml (0-0.045) White Blood Count 6.14 K/uL (4.8-10.8) Red Blood Count 3.70 M/uL (4.7-6.1) Hemoglobin 11.2 g/dL (14.0-18.0) Hematocrit 35.9 % (42-52) Mean Corpuscular Volume 97.0 fL (80-100) Mean Corpuscular Hemoglobin 30.3 pg (25-34) Mean Corpuscular Hemoglobin Concent 31.2 g/dl (32-36) Platelet Count 113 K/uL (130-400) Mean Platelet Volume 10.0 fL (7.4-10.4) Neutrophils (%) (Auto) 70.3 % Lymphocytes (%) (Auto) 18.4 % Monocytes (%) (Auto) 9.9 % Eosinophils (%) (Auto) 1.0 % Basophils (%) (Auto) 0.2 % Neutrophils # (Auto) 4.32 K/uL (1.4-6.5) Lymphocytes # (Auto) 1.13 K/uL (1.2-3.4) Monocytes # (Auto) 0.61 K/uL (0.11-0.59) Eosinophils # (Auto) 0.06 K/uL (0-0.5) Basophils # (Auto) 0.01 K/uL (0-0.2) RDW Standard Deviation 63.1 fL (36.4-46.3) RDW Coefficient of Variation 17.7 % (11.5-14.5) Immature Granulocyte % (Auto) 0.2 % Immature Granulocyte # (Auto) 0.01 K/uL (0.00-0.02) Prothrombin Time 11.5 SECONDS (9.0-12.0) Prothromb Time International Ratio 1.1 (0.9-1.1) Hepatitis B Surface Antigen NEG (NEG) Hepatitis B Surface Antibody POS Test 12/28/17 15:30 12/28/17 15:42 12/28/17 16:16 Bedside Glucose 160 mg/dl (70-99) White Blood Count 7.76 K/uL (4.8-10.8) Red Blood Count 4.34 M/uL (4.7-6.1) Hemoglobin 13.2 g/dL (14.0-18.0) Hematocrit 41.9 % (42-52) Mean Corpuscular Volume 96.5 fL (80-100) Mean Corpuscular Hemoglobin 30.4 pg (25-34) Mean Corpuscular Hemoglobin Concent 31.5 g/dl (32-36) Platelet Count 149 K/uL (130-400) Mean Platelet Volume 10.1 fL (7.4-10.4) Neutrophils (%) (Auto) 47.2 % Lymphocytes (%) (Auto) 47.9 % Monocytes (%) (Auto) 3.6 % Eosinophils (%) (Auto) 0.3 % Basophils (%) (Auto) 0.1 % Neutrophils # (Auto) 3.66 K/uL (1.4-6.5) Lymphocytes # (Auto) 3.72 K/uL (1.2-3.4) Monocytes # (Auto) 0.28 K/uL (0.11-0.59) Eosinophils # (Auto) 0.02 K/uL (0-0.5) Basophils # (Auto) 0.01 K/uL (0-0.2) RDW Standard Deviation 63.6 fL (36.4-46.3) RDW Coefficient of Variation 17.8 % (11.5-14.5) Immature Granulocyte % (Auto) 0.9 % Immature Granulocyte # (Auto) 0.07 K/uL (0.00-0.02) Anion Gap 13.0 mmol/L (3-11) Est Creatinine Clear Calc Drug Dose 8.6 ml/min Estimated GFR () 9.0 Estimated GFR (Non- 7.8 BUN/Creatinine Ratio 7.1 (10-20) Calcium Level 8.7 mg/dl (8.5-10.1) Total Bilirubin 0.6 mg/dl (0.2-1) Aspartate Amino Transf (AST/SGOT) 18 U/L (15-37) Alanine Aminotransferase (ALT/SGPT) 6 U/L (12-78) Alkaline Phosphatase 117 U/L (45-117) Troponin I < 0.015 ng/ml (0-0.045) Total Protein 7.0 gm/dl (6.4-8.2) Albumin 3.0 gm/dl (3.4-5.0) Globulin 4.0 gm/dl (2.5-4.0) Albumin/Globulin Ratio 0.7 (0.9-2) Lactic Acid Level 2.7 mmol/L (0.4-2.0) Procalcitonin 1.35 ng/ml (0-0.5) Allergies Coded Allergies: Penicillins (Unverified Allergy, Unknown, HIVES, 12/27/17) Medications Current Inpatient Medications Medications (Trade) Dose Ordered Sig/Crys Route Start Time Stop Time Status Last Admin Dose Admin Magnesium Hydroxide (Milk Of Magnesia Susp) 30 ml Q12H PRN PO 12/27/17 20:30 01/26/18 20:29 Ondansetron HCl (Zofran Inj) 4 mg Q6H PRN IV 12/27/17 20:30 01/26/18 20:29 Nitroglycerin (Nitrostat Tab) 0.4 mg UD PRN SL 12/27/17 20:30 01/26/18 20:29 Polyethylene (Miralax Powder Packet) 17 gm DAILY PRN PO 12/27/17 20:30 01/26/18 20:29 Acetaminophen (Tylenol Tab) 1,000 mg Q8H PRN PO 12/27/17 20:30 01/26/18 20:29 Ascorbic Acid (Vitamin C Tab) 500 mg BID PO 12/27/17 21:00 01/26/18 20:59 12/28/17 07:54 500 MG Aspirin (Ecotrin Tab) 81 mg DAILY PO 12/28/17 09:00 01/27/18 08:59 12/28/17 07:52 81 MG Atorvastatin Calcium (Lipitor Tab) 40 mg HS PO 12/27/17 21:00 01/26/18 20:59 12/27/17 21:59 40 MG Carbidopa/Levodopa (Sinemet Cr 50/ 200MG Tab) 1 tab DAILY PO 12/28/17 09:00 01/27/18 08:59 12/28/17 07:54 1 TAB Clonazepam (Klonopin Tab) 0.25 mg HS PO 12/27/17 21:00 01/26/18 20:59 12/27/17 21:58 0.25 MG Clopidogrel Bisulfate (plAVix TAB) 75 mg DAILY PO 12/28/17 09:00 01/27/18 08:59 12/28/17 07:55 75 MG Docusate Sodium (coLACE CAP) 100 mg BID PO 12/27/17 21:00 01/26/18 20:59 12/28/17 07:54 100 MG Hydrocortisone (Cortef Tab) 10 mg DAILY PO 12/28/17 09:00 01/27/18 08:59 12/28/17 07:54 10 MG Levothyroxine Sodium (Synthroid Tab) 25 mcg DAILYBB PO 12/28/17 06:00 01/27/18 05:59 12/28/17 06:18 25 MCG Metoprolol Tartrate (Lopressor Tab) 12.5 mg BID PO 12/27/17 21:00 01/26/18 20:59 12/28/17 07:53 12.5 MG Midodrine (Proamatine Tab) 10 mg TID@0600,1200,1800 PO 12/28/17 06:00 01/27/18 05:59 12/28/17 17:13 10 MG Pantoprazole Sodium (Protonix Tab) 40 mg DAILY PO 12/28/17 09:00 01/27/18 08:59 12/28/17 07:54 40 MG Pramipexole Dihydrochloride (miraPEX TAB) 1 mg DAILY PO 12/28/17 09:00 01/27/18 08:59 12/28/17 07:55 1 MG Vitamin B Complex/ Vit C/Folic Acid (Nephrocaps) 1 cap DAILY PO 12/28/17 09:00 01/27/18 08:59 12/28/17 07:53 1 CAP Albuterol/ Ipratropium (Duoneb) 3 ml QIDR INH 12/28/17 08:00 01/27/18 07:59 12/28/17 18:52 3 ML Heparin Sodium (Porcine) (Heparin Sq 5000 Unit/0.5ml) 5,000 unit Q12 SQ 12/28/17 09:00 01/27/18 08:59 12/28/17 09:17 5,000 UNIT Ioversol (Optiray 320) 125 ml UD PRN IV 12/28/17 15:00 01/01/18 14:59 Aztreonam 500 mg/ Dextrose 105 ml @ 100 mls/hr Q8H IV 12/29/17 00:00 01/05/18 00:00 Levofloxacin 500 mg/Prmx 100 ml @ 100 mls/hr Q2D@1800 IV 12/30/17 18:00 01/04/18 17:59 Aztreonam (Consult) 1 ea UD PRN N/A 12/28/17 18:00 01/27/18 17:59 Levofloxacin (Consult) 1 ea UD PRN N/A 12/28/17 18:00 01/27/18 17:59 Impression (1) ESRD (end stage renal disease) on dialysis (2) Anemia (3) Shortness of breath (4) Chest pain (5) Coronary artery disease (6) Hypotension (7) Autonomic instability (8) Chronic lung disease (9) Granulomatosis with polyangiitis with renal involvement Tolerating HD well. 3K. 3 hr treatment. Qb at goal. Temp adjusted. BP acceptable.
[2017-12-28] MEDS: ATORVASTATIN 40 MG TAB PO SCH (22:35)
[2017-12-29] VITALS (12 sets, daily range): BP systolic 113–160; BP diastolic 55–69; PULSE 60–97; TEMP 36.3–37.2; O2SAT 95–100
[2017-12-29] MEDS: AZTREONAM IV 500 MG in DEXTROSE 5% 100ML 100 ML IV SCH ×3 (00:32→16:49)
[2017-12-29 04:40] LABS: BASO % 0.4 %; BASO ABS # 0.02 K/uL (0-0.2); EOS % 0.4 %; EOS ABS # 0.02 K/uL (0-0.5); HEMATOCRIT 32.9 % (42-52); HEMOGLOBIN 10.3 g/dL (14.0-18.0); IG# 0.02 K/uL (0.00-0.02); LYMPH % 18.3 %; LYMPH ABS # 0.98 K/uL (1.2-3.4); MEAN CELL VOLUME 96.5 fL (80-100); MEAN CORPUSCULAR HEMOGLOBIN 30.2 pg (25-34); MEAN CORPUSCULAR HGB CONC 31.3 g/dl (32-36); MEAN PLATELET VOLUME 9.7 fL (7.4-10.4); MONO % 9.3 %; NEUT % 71.2 %; NEUT ABS # 3.82 K/uL (1.4-6.5); PLATELET COUNT 106 K/uL (130-400); RED CELL DISTRIBUTION WIDTH CV 17.9 % (11.5-14.5); RED CELL DISTRIBUTION WIDTH SD 63.1 fL (36.4-46.3); WHITE BLOOD COUNT 5.36 K/uL (4.8-10.8)
[2017-12-29 04:48] LABS: CREATININE 4.01 mg/dl (0.60-1.40); POTASSIUM 4.1 mmol/L (3.5-5.1)
[2017-12-29] MEDS: LEVOTHYROXINE 25 MCG TAB PO SCH (05:52)
[2017-12-29] MEDS: MIDODRINE 10 MG TAB PO SCH ×3 (05:53→16:53)
[2017-12-29] MEDS: ALBUT/IPRATROP 3MG/0.5MG NEB 3 ML VIAL INH SCH ×4 (07:08→18:58)
[2017-12-29] MEDS: CLOPIDOGREL BISULFATE 75 MG TAB PO SCH (08:01)
[2017-12-29] MEDS: CARBIDOPA/LEVODOPA 50/200MG EXT REL TAB PO SCH (08:01)
[2017-12-29] MEDS: NEPHROCAPS PO SCH (08:01)
[2017-12-29] MEDS: PRAMIPEXOLE DIHYDROCHLORIDE 0.5 MG TAB PO SCH (08:02)
[2017-12-29] MEDS: HYDROCORTISONE 10 MG TAB PO SCH (08:02)
[2017-12-29] MEDS: PANTOprazole SOD 40 MG TAB PO SCH (08:02)
[2017-12-29] MEDS: METOPROLOL TARTRATE 25 MG TAB PO SCH ×2 (08:03→20:51)
[2017-12-29] MEDS: ASCORBIC ACID 500 MG TAB PO SCH ×2 (08:03→20:54)
[2017-12-29] MEDS: ASPIRIN 81 MG ECTAB PO SCH (08:04)
[2017-12-29] MEDS: DOCUSATE SODIUM 100 MG CAP PO SCH ×2 (08:04→20:51)
[2017-12-29] MEDS: HEPARIN SOD 5000 UNIT/0.5 ML CARP SQ SCH ×2 (08:05→21:00)
[2017-12-29] MEDS ORDERED: HYDROCORTISONE 10 MG TAB PO ONE (09:00)
--- NOTE | 2017-12-29 10:03 | Nephrology Progress Note ---
Nephrology Progress Note Date of Service Dec 29, 2017. Chief Complaint ESRD Subjective Presyncopal episode yesterday following CTA. Sukhdeep experienced an episode during which he experienced a few seconds of fluttering in his chest this morning. He reports improvement in chest pain. Also notes improvement in dyspnea. Tolerated HD yesterday evening, UF 880 ml. No fevers or chills. Review of Systems A complete review of systems was performed. Pertinent positives are noted above. All other systems are negative. Vital Signs Last 8 Hrs Date Time Temp Pulse Resp B/P (MAP) Pulse Ox O2 Delivery O2 Flow Rate FiO2 12/29/17 08:00 96 Nasal Cannula 4.0 12/29/17 08:00 76 12/29/17 07:08 71 20 100 Nasal Cannula 4.0 12/29/17 06:57 36.5 72 16 116/55 (75) 95 12/29/17 04:15 37.2 74 18 113/56 (75) 98 Last Recorded Weight Weight (Kilograms): 64.100 Physical Exam General Appearance: no apparent distress, + thin Head: normocephalic, atraumatic Eyes: normal inspection, sclerae normal ENT: normal ENT inspection, pharynx normal Neck: supple, no JVD (8 cm) Respiratory/Chest: lungs clear, no respiratory distress, no accessory muscle use Cardiovascular: regular rate, rhythm, + systolic murmur Abdomen/GI: non tender, soft Extremities/Musculoskelatal: normal inspection, no pedal edema Neurologic/Psych: alert, normal mood/affect Social History suffering from dementia Laboratory Results Past 24 Hours 12/28/17 15:42 Red Blood Count 4.34, Mean Corpuscular Volume 96.5, Mean Corpuscular Hemoglobin 30.4, Mean Corpuscular Hemoglobin Concent 31.5, Mean Platelet Volume 10.1, Neutrophils (%) (Auto) 47.2, Lymphocytes (%) (Auto) 47.9, Monocytes (%) (Auto) 3.6, Eosinophils (%) (Auto) 0.3, Basophils (%) (Auto) 0.1, Neutrophils # (Auto) 3.66, Lymphocytes # (Auto) 3.72, Monocytes # (Auto) 0.28, Eosinophils # (Auto) 0.02, Basophils # (Auto) 0.01 12/29/17 04:11 Red Blood Count 3.41, Mean Corpuscular Volume 96.5, Mean Corpuscular Hemoglobin 30.2, Mean Corpuscular Hemoglobin Concent 31.3, Mean Platelet Volume 9.7, Neutrophils (%) (Auto) 71.2, Lymphocytes (%) (Auto) 18.3, Monocytes (%) (Auto) 9.3, Eosinophils (%) (Auto) 0.4, Basophils (%) (Auto) 0.4, Neutrophils # (Auto) 3.82, Lymphocytes # (Auto) 0.98, Monocytes # (Auto) 0.50, Eosinophils # (Auto) 0.02, Basophils # (Auto) 0.02 12/28/17 15:42 12/29/17 04:11 Test 12/28/17 11:58 12/28/17 15:30 12/28/17 15:42 12/28/17 16:16 Hepatitis B Surface Antigen NEG (NEG) Hepatitis B Surface Antibody POS Bedside Glucose 160 mg/dl (70-99) White Blood Count 7.76 K/uL (4.8-10.8) Red Blood Count 4.34 M/uL (4.7-6.1) Hemoglobin 13.2 g/dL (14.0-18.0) Hematocrit 41.9 % (42-52) Mean Corpuscular Volume 96.5 fL (80-100) Mean Corpuscular Hemoglobin 30.4 pg (25-34) Mean Corpuscular Hemoglobin Concent 31.5 g/dl (32-36) Platelet Count 149 K/uL (130-400) Mean Platelet Volume 10.1 fL (7.4-10.4) Neutrophils (%) (Auto) 47.2 % Lymphocytes (%) (Auto) 47.9 % Monocytes (%) (Auto) 3.6 % Eosinophils (%) (Auto) 0.3 % Basophils (%) (Auto) 0.1 % Neutrophils # (Auto) 3.66 K/uL (1.4-6.5) Lymphocytes # (Auto) 3.72 K/uL (1.2-3.4) Monocytes # (Auto) 0.28 K/uL (0.11-0.59) Eosinophils # (Auto) 0.02 K/uL (0-0.5) Basophils # (Auto) 0.01 K/uL (0-0.2) RDW Standard Deviation 63.6 fL (36.4-46.3) RDW Coefficient of Variation 17.8 % (11.5-14.5) Immature Granulocyte % (Auto) 0.9 % Immature Granulocyte # (Auto) 0.07 K/uL (0.00-0.02) Anion Gap 13.0 mmol/L (3-11) Est Creatinine Clear Calc Drug Dose 8.6 ml/min Estimated GFR () 9.0 Estimated GFR (Non- 7.8 BUN/Creatinine Ratio 7.1 (10-20) Calcium Level 8.7 mg/dl (8.5-10.1) Total Bilirubin 0.6 mg/dl (0.2-1) Aspartate Amino Transf (AST/SGOT) 18 U/L (15-37) Alanine Aminotransferase (ALT/SGPT) 6 U/L (12-78) Alkaline Phosphatase 117 U/L (45-117) Troponin I < 0.015 ng/ml (0-0.045) Total Protein 7.0 gm/dl (6.4-8.2) Albumin 3.0 gm/dl (3.4-5.0) Globulin 4.0 gm/dl (2.5-4.0) Albumin/Globulin Ratio 0.7 (0.9-2) Lactic Acid Level 2.7 mmol/L (0.4-2.0) Procalcitonin 1.35 ng/ml (0-0.5) Test 12/28/17 22:43 12/29/17 04:11 Troponin I 0.034 ng/ml (0-0.045) 0.035 ng/ml (0-0.045) White Blood Count 5.36 K/uL (4.8-10.8) Red Blood Count 3.41 M/uL (4.7-6.1) Hemoglobin 10.3 g/dL (14.0-18.0) Hematocrit 32.9 % (42-52) Mean Corpuscular Volume 96.5 fL (80-100) Mean Corpuscular Hemoglobin 30.2 pg (25-34) Mean Corpuscular Hemoglobin Concent 31.3 g/dl (32-36) Platelet Count 106 K/uL (130-400) Mean Platelet Volume 9.7 fL (7.4-10.4) Neutrophils (%) (Auto) 71.2 % Lymphocytes (%) (Auto) 18.3 % Monocytes (%) (Auto) 9.3 % Eosinophils (%) (Auto) 0.4 % Basophils (%) (Auto) 0.4 % Neutrophils # (Auto) 3.82 K/uL (1.4-6.5) Lymphocytes # (Auto) 0.98 K/uL (1.2-3.4) Monocytes # (Auto) 0.50 K/uL (0.11-0.59) Eosinophils # (Auto) 0.02 K/uL (0-0.5) Basophils # (Auto) 0.02 K/uL (0-0.2) RDW Standard Deviation 63.1 fL (36.4-46.3) RDW Coefficient of Variation 17.9 % (11.5-14.5) Immature Granulocyte % (Auto) 0.4 % Immature Granulocyte # (Auto) 0.02 K/uL (0.00-0.02) Anion Gap 10.0 mmol/L (3-11) Est Creatinine Clear Calc Drug Dose 14.3 ml/min Estimated GFR () 15.4 Estimated GFR (Non- 13.3 BUN/Creatinine Ratio 6.2 (10-20) Calcium Level 8.0 mg/dl (8.5-10.1) Allergies Coded Allergies: Penicillins (Unverified Allergy, Unknown, HIVES, 12/27/17) Medications Current Inpatient Medications Medications (Trade) Dose Ordered Sig/Crys Route Start Time Stop Time Status Last Admin Dose Admin Magnesium Hydroxide (Milk Of Magnesia Susp) 30 ml Q12H PRN PO 12/27/17 20:30 01/26/18 20:29 Ondansetron HCl (Zofran Inj) 4 mg Q6H PRN IV 12/27/17 20:30 01/26/18 20:29 Nitroglycerin (Nitrostat Tab) 0.4 mg UD PRN SL 12/27/17 20:30 01/26/18 20:29 Polyethylene (Miralax Powder Packet) 17 gm DAILY PRN PO 12/27/17 20:30 01/26/18 20:29 Acetaminophen (Tylenol Tab) 1,000 mg Q8H PRN PO 12/27/17 20:30 01/26/18 20:29 Ascorbic Acid (Vitamin C Tab) 500 mg BID PO 12/27/17 21:00 01/26/18 20:59 12/29/17 08:03 500 MG Aspirin (Ecotrin Tab) 81 mg DAILY PO 12/28/17 09:00 01/27/18 08:59 12/29/17 08:04 81 MG Atorvastatin Calcium (Lipitor Tab) 40 mg HS PO 12/27/17 21:00 01/26/18 20:59 12/28/17 22:35 40 MG Carbidopa/Levodopa (Sinemet Cr 50/ 200MG Tab) 1 tab DAILY PO 12/28/17 09:00 01/27/18 08:59 12/29/17 08:01 1 TAB Clonazepam (Klonopin Tab) 0.25 mg HS PO 12/27/17 21:00 01/26/18 20:59 12/28/17 21:00 0.25 MG Clopidogrel Bisulfate (plAVix TAB) 75 mg DAILY PO 12/28/17 09:00 01/27/18 08:59 12/29/17 08:01 75 MG Docusate Sodium (coLACE CAP) 100 mg BID PO 12/27/17 21:00 01/26/18 20:59 12/29/17 08:04 100 MG Levothyroxine Sodium (Synthroid Tab) 25 mcg DAILYBB PO 12/28/17 06:00 01/27/18 05:59 12/29/17 05:52 25 MCG Metoprolol Tartrate (Lopressor Tab) 12.5 mg BID PO 12/27/17 21:00 01/26/18 20:59 12/29/17 08:03 12.5 MG Midodrine (Proamatine Tab) 10 mg TID@0600,1200,1800 PO 12/28/17 06:00 01/27/18 05:59 12/29/17 05:53 10 MG Pantoprazole Sodium (Protonix Tab) 40 mg DAILY PO 12/28/17 09:00 01/27/18 08:59 12/29/17 08:02 40 MG Pramipexole Dihydrochloride (miraPEX TAB) 1 mg DAILY PO 12/28/17 09:00 01/27/18 08:59 12/29/17 08:02 1 MG Vitamin B Complex/ Vit C/Folic Acid (Nephrocaps) 1 cap DAILY PO 12/28/17 09:00 01/27/18 08:59 12/29/17 08:01 1 CAP Albuterol/ Ipratropium (Duoneb) 3 ml QIDR INH 12/28/17 08:00 01/27/18 07:59 12/29/17 07:08 3 ML Heparin Sodium (Porcine) (Heparin Sq 5000 Unit/0.5ml) 5,000 unit Q12 SQ 12/28/17 09:00 01/27/18 08:59 12/29/17 08:05 5,000 UNIT Ioversol (Optiray 320) 125 ml UD PRN IV 12/28/17 15:00 01/01/18 14:59 Aztreonam 500 mg/ Dextrose 105 ml @ 100 mls/hr Q8H IV 12/29/17 00:00 01/05/18 00:00 12/29/17 08:00 100 MLS/HR Levofloxacin 500 mg/Prmx 100 ml @ 100 mls/hr Q2D@1800 IV 12/30/17 18:00 01/04/18 17:59 Aztreonam (Consult) 1 ea UD PRN N/A 12/28/17 18:00 01/27/18 17:59 Levofloxacin (Consult) 1 ea UD PRN N/A 12/28/17 18:00 01/27/18 17:59 Hydrocortisone (Cortef Tab) 30 mg DAILY PO 12/30/17 09:00 01/29/18 08:59 Impression (1) ESRD (end stage renal disease) on dialysis (2) Anemia (3) Shortness of breath (4) Chest pain (5) Coronary artery disease (6) Hypotension (7) Autonomic instability (8) Chronic lung disease (9) Granulomatosis with polyangiitis with renal involvement Mr. 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 He was admitted to [facility] with chest pain and shortness of breath. CXR, CT and CTA chest reveal notable chronic lung changes and possible pneumonia. The patient is being treated with aztreonam and Levaquin. TTE documented elevated right sided pressures and evidence of pulmonary HTN. Blood pressure and volume status appears appropriate. UF with HD complicated by intradialytic hypotension but 800 ml were able to be obtained yesterday evening. The patient is maintained on midodrine. Recommendations ESRD: -- HD MWF @ [facility] as outpatient, plan next treatment tomorrow -- Renal diet -- Document I/O's and daily metabolic profile -- EDW reported at 64.5 kg Hypotension: -- Midodrine 10 mg preHD Anemia: -- Chronic, stable -- No need for additional KENDRA
--- NOTE | 2017-12-29 10:35 | Cardiology Consultation ---
Cardiology Consultation Date of Consultation: Dec 29, 2017. Requesting Physician: Radha Reason for Consultation: chest pain Pt evaluation today including: conversation w/ patient, physical exam, chart review, lab review, review of studies, review of inpatient medication list, conversation w/ attending History of Present Illness Patient is a 77-year-old gentleman with an extensive cardiac history who was admitted to [facility] with acute shortness of breath. Patient initially presented to [facility] with symptoms of acute dyspnea which occurred approximately 2 hours after his usual Saturday dialysis. There was some concern regarding congestive heart failure in the need for additional dialysis and he was transported to our facility has no dialysis was available in [place]. Patient states that he has been feeling relatively well until after dialysis when he became markedly dyspneic. The patient had been having some symptoms of right-sided sharp chest discomfort which had not changed markedly prior to this event. Patient uses 4 liters of oxygen chronically. He generally does have an element of dyspnea with exertion but not at rest. He has not reported recent fevers or chills. He does have a cough which is productive of some discolored sputum. He has been undergoing his usual dialysis without any particular difficulty. He denies any recent palpitations although on occasion he will notice a fleeting rapid heartbeat. He has not had dizziness or lightheadedness recently. He does not have orthopnea. In October of this year the patient was admitted to [place] with infection. During that admission the patient reportedly suffered a cardiac arrest. The records suggest that the offending rhythm was ventricular tachycardia. It seems he underwent coronary angiography and had a stent placed in the circumflex artery. Since that time the patient reports feeling more fatigued and having less ability to exercise. In general he is a very sedentary individual but does enjoy working on automobiles. He wears his oxygen at all times. He does have dyspnea with exertion. Yesterday afternoon the patient underwent CT scanning of the chest for abnormality seen on x-ray. Subsequent to the scanning the patient reported feeling warm and somewhat lightheaded. Reportedly he was in the process of setting up from a supine position became acutely lightheaded. He was placed back in the supine position with resolution of his symptoms. Initially he was felt to have an irregular heartbeat, this was later documented to be a sinus tachycardia. The patient did report some chest discomfort around that time. This was distinct from his prior complaints of right-sided chest pain. The symptoms are fairly transient resolved after a few minutes. EKG obtained around that time did demonstrate some ST segment changes. This morning the patient claims to be feeling well. He states his breathing is at its baseline. He states he feels about as well as he has ever since his cardiac arrest little over a month ago. Most of his symptoms involve fatigue and exercise intolerance. Past Medical/Surgical History Coronary artery disease status post percutaneous intervention to left circumflex , October 2017 Valvular heart disease status post percutaneous aortic valve replacement around June 2016 Moderate mitral regurgitation History of congestive heart failure, likely diastolic History of cardiac arrest october 2017, possibly secondary to ventricular tachycardia COPD End-stage renal disease on dialysis times 12 years Hypertension Hyperlipidemia Obstructive sleep apnea Pulmonary fibrosis Restless leg syndrome Spinal stenosis Gus granulomatosis Past surgical history: Av fistula left forearm Percutaneous aortic valve replacement, [employer] CoreValve Kidney transplant Family History Noncontributory given his advanced age and comorbidities Social History Smoking Status: Never Smoker History of Alcohol Use: No Previously lived in [place] in [place]. Review of Systems Respiratory: + shortness of breath Cardiac: + see HPI, + chest pain, No orthopnea, No PND, No edema Per HPI. No recent nausea. Appears to be tolerating a diet well. All Other Systems: Reviewed and Negative Allergies Coded Allergies: Penicillins (Unverified Allergy, Unknown, HIVES, 12/27/17) Medications Current Inpatient Medications Medications (Trade) Dose Ordered Sig/Crys Route Start Time Stop Time Status Last Admin Dose Admin Magnesium Hydroxide (Milk Of Magnesia Susp) 30 ml Q12H PRN PO 12/27/17 20:30 01/26/18 20:29 Ondansetron HCl (Zofran Inj) 4 mg Q6H PRN IV 12/27/17 20:30 01/26/18 20:29 Nitroglycerin (Nitrostat Tab) 0.4 mg UD PRN SL 12/27/17 20:30 01/26/18 20:29 Polyethylene (Miralax Powder Packet) 17 gm DAILY PRN PO 12/27/17 20:30 01/26/18 20:29 Acetaminophen (Tylenol Tab) 1,000 mg Q8H PRN PO 12/27/17 20:30 01/26/18 20:29 Ascorbic Acid (Vitamin C Tab) 500 mg BID PO 12/27/17 21:00 01/26/18 20:59 12/29/17 08:03 500 MG Aspirin (Ecotrin Tab) 81 mg DAILY PO 12/28/17 09:00 01/27/18 08:59 12/29/17 08:04 81 MG Atorvastatin Calcium (Lipitor Tab) 40 mg HS PO 12/27/17 21:00 01/26/18 20:59 12/28/17 22:35 40 MG Carbidopa/Levodopa (Sinemet Cr 50/ 200MG Tab) 1 tab DAILY PO 12/28/17 09:00 01/27/18 08:59 12/29/17 08:01 1 TAB Clonazepam (Klonopin Tab) 0.25 mg HS PO 12/27/17 21:00 01/26/18 20:59 12/28/17 21:00 0.25 MG Clopidogrel Bisulfate (plAVix TAB) 75 mg DAILY PO 12/28/17 09:00 01/27/18 08:59 12/29/17 08:01 75 MG Docusate Sodium (coLACE CAP) 100 mg BID PO 12/27/17 21:00 01/26/18 20:59 12/29/17 08:04 100 MG Levothyroxine Sodium (Synthroid Tab) 25 mcg DAILYBB PO 12/28/17 06:00 01/27/18 05:59 12/29/17 05:52 25 MCG Metoprolol Tartrate (Lopressor Tab) 12.5 mg BID PO 12/27/17 21:00 01/26/18 20:59 12/29/17 08:03 12.5 MG Midodrine (Proamatine Tab) 10 mg TID@0600,1200,1800 PO 12/28/17 06:00 01/27/18 05:59 12/29/17 05:53 10 MG Pantoprazole Sodium (Protonix Tab) 40 mg DAILY PO 12/28/17 09:00 01/27/18 08:59 12/29/17 08:02 40 MG Pramipexole Dihydrochloride (miraPEX TAB) 1 mg DAILY PO 12/28/17 09:00 01/27/18 08:59 12/29/17 08:02 1 MG Vitamin B Complex/ Vit C/Folic Acid (Nephrocaps) 1 cap DAILY PO 12/28/17 09:00 01/27/18 08:59 12/29/17 08:01 1 CAP Albuterol/ Ipratropium (Duoneb) 3 ml QIDR INH 12/28/17 08:00 01/27/18 07:59 12/29/17 07:08 3 ML Heparin Sodium (Porcine) (Heparin Sq 5000 Unit/0.5ml) 5,000 unit Q12 SQ 12/28/17 09:00 01/27/18 08:59 12/29/17 08:05 5,000 UNIT Ioversol (Optiray 320) 125 ml UD PRN IV 12/28/17 15:00 01/01/18 14:59 Aztreonam 500 mg/ Dextrose 105 ml @ 100 mls/hr Q8H IV 12/29/17 00:00 01/05/18 00:00 12/29/17 08:00 100 MLS/HR Levofloxacin 500 mg/Prmx 100 ml @ 100 mls/hr Q2D@1800 IV 12/30/17 18:00 01/04/18 17:59 Aztreonam (Consult) 1 ea UD PRN N/A 12/28/17 18:00 01/27/18 17:59 Levofloxacin (Consult) 1 ea UD PRN N/A 12/28/17 18:00 01/27/18 17:59 Hydrocortisone (Cortef Tab) 30 mg DAILY PO 12/30/17 09:00 01/29/18 08:59 Physical Exam Vital Signs Past 12 Hours Date Time Temp Pulse Resp B/P (MAP) Pulse Ox O2 Delivery O2 Flow Rate FiO2 12/29/17 08:00 96 Nasal Cannula 4.0 12/29/17 08:00 76 12/29/17 07:08 71 20 100 Nasal Cannula 4.0 12/29/17 06:57 36.5 72 16 116/55 (75) 95 12/29/17 04:15 37.2 74 18 113/56 (75) 98 12/28/17 23:52 36.8 99 24 108/51 (70) 98 Nasal Cannula 4.0 12/28/17 22:39 36.3 76 129/62 (84) The patient is alert and oriented. Mood and affect appeared normal. He answered all questions appropriately. HEENT: Pupils are equal and reactive to light and accommodation. Extraocular movements are intact. The sclerae are anicteric. Neuro: Cranial nerves intact Neck: Patient's neck is supple. He has palpable carotid pulses bilaterally without bruits on auscultation. There is no evidence of jugular venous distention. The thyroid is not enlarged. Lungs: Diffuse crackles throughout all lung denise with some expiratory wheezing. He has good air movement without use of accessory muscles. Cardiac: Heart demonstrates a regular rate and rhythm. Normal S1 and S2. Relatively low pitched in nearly holosystolic murmur in the right upper sternal area. Pulses: The patient has palpable radial pulses bilaterally that are equal in intensity Extremities: There was no evidence of hypoperfusion. There is no cyanosis or clubbing. There is no edema. AV fistula in the left forearm with palpable pulse and thrill. Skin: I did not appreciate any rashes on examination today. Data Laboratory Results: Last 24 Hours Test 12/28/17 11:58 12/28/17 15:30 12/28/17 15:42 12/28/17 16:16 Hepatitis B Surface Antigen NEG Hepatitis B Surface Antibody POS Bedside Glucose 160 mg/dl White Blood Count 7.76 K/uL Red Blood Count 4.34 M/uL Hemoglobin 13.2 g/dL Hematocrit 41.9 % Mean Corpuscular Volume 96.5 fL Mean Corpuscular Hemoglobin 30.4 pg Mean Corpuscular Hemoglobin Concent 31.5 g/dl Platelet Count 149 K/uL Mean Platelet Volume 10.1 fL Neutrophils (%) (Auto) 47.2 % Lymphocytes (%) (Auto) 47.9 % Monocytes (%) (Auto) 3.6 % Eosinophils (%) (Auto) 0.3 % Basophils (%) (Auto) 0.1 % Neutrophils # (Auto) 3.66 K/uL Lymphocytes # (Auto) 3.72 K/uL Monocytes # (Auto) 0.28 K/uL Eosinophils # (Auto) 0.02 K/uL Basophils # (Auto) 0.01 K/uL RDW Standard Deviation 63.6 fL RDW Coefficient of Variation 17.8 % Immature Granulocyte % (Auto) 0.9 % Immature Granulocyte # (Auto) 0.07 K/uL Sodium Level 133 mmol/L Potassium Level 4.4 mmol/L Chloride Level 96 mmol/L Carbon Dioxide Level 25 mmol/L Anion Gap 13.0 mmol/L Blood Urea Nitrogen 44 mg/dl Creatinine 6.26 mg/dl Est Creatinine Clear Calc Drug Dose 8.6 ml/min Estimated GFR () 9.0 Estimated GFR (Non- 7.8 BUN/Creatinine Ratio 7.1 Random Glucose 138 mg/dl Calcium Level 8.7 mg/dl Total Bilirubin 0.6 mg/dl Aspartate Amino Transf (AST/SGOT) 18 U/L Alanine Aminotransferase (ALT/SGPT) 6 U/L Alkaline Phosphatase 117 U/L Troponin I < 0.015 ng/ml Total Protein 7.0 gm/dl Albumin 3.0 gm/dl Globulin 4.0 gm/dl Albumin/Globulin Ratio 0.7 Lactic Acid Level 2.7 mmol/L Procalcitonin 1.35 ng/ml Test 12/28/17 22:43 12/29/17 04:11 Troponin I 0.034 ng/ml 0.035 ng/ml White Blood Count 5.36 K/uL Red Blood Count 3.41 M/uL Hemoglobin 10.3 g/dL Hematocrit 32.9 % Mean Corpuscular Volume 96.5 fL Mean Corpuscular Hemoglobin 30.2 pg Mean Corpuscular Hemoglobin Concent 31.3 g/dl Platelet Count 106 K/uL Mean Platelet Volume 9.7 fL Neutrophils (%) (Auto) 71.2 % Lymphocytes (%) (Auto) 18.3 % Monocytes (%) (Auto) 9.3 % Eosinophils (%) (Auto) 0.4 % Basophils (%) (Auto) 0.4 % Neutrophils # (Auto) 3.82 K/uL Lymphocytes # (Auto) 0.98 K/uL Monocytes # (Auto) 0.50 K/uL Eosinophils # (Auto) 0.02 K/uL Basophils # (Auto) 0.02 K/uL RDW Standard Deviation 63.1 fL RDW Coefficient of Variation 17.9 % Immature Granulocyte % (Auto) 0.4 % Immature Granulocyte # (Auto) 0.02 K/uL Sodium Level 136 mmol/L Potassium Level 4.1 mmol/L Chloride Level 99 mmol/L Carbon Dioxide Level 27 mmol/L Anion Gap 10.0 mmol/L Blood Urea Nitrogen 25 mg/dl Creatinine 4.01 mg/dl Est Creatinine Clear Calc Drug Dose 14.3 ml/min Estimated GFR () 15.4 Estimated GFR (Non- 13.3 BUN/Creatinine Ratio 6.2 Random Glucose 101 mg/dl Calcium Level 8.0 mg/dl Imaging: Chest CT demonstrates healing rib fractures. Possible right sided pneumonia. Diffuse interstitial pattern. No pulmonary embolus. EKG: Initial EKG normal sinus rhythm left anterior fascicular block. Telemetry reviewed: Occasional runs of an atrial arrhythmia, likely SVT. Echocardiogram performed 7 06/29/2017: Preserved LV systolic function, moderate diastolic dysfunction. Moderate mitral regurgitation. Bioprosthetic aortic valve Assessment & Plan 1. Dyspnea: Patient is known to have primary lung disease and an element of diastolic dysfunction. Unclear what prompted his initial symptoms. He may have had an element of pulmonary vascular congestion in the setting of his chronic lung disease. He also appears to have been diagnosed with a pneumonia. He states that his breathing is back to baseline. I do not think he has significant volume overload. There is also some concern regarding removing volume in this gentleman who appears to be quite sensitive to volume loss and hypotensive at times. 2. Diastolic heart failure: Possibly an element of diastolic heart failure at presentation. However, his examination and x-ray are not likely to ever be normal. His was at his dry weight and did not have any pulmonary edema. I think this can be monitored. Think his fluid status has been adequately managed with dialysis. Patient is on a beta-kristyn for treatment. 3. Valvular heart disease: Patient underwent transcatheter cutaneous replacement of aortic valve nearly 2 years ago by report. There is a slightly increased gradient across this valve on echocardiogram. However, this is not likely hemodynamically significant. He has an element of mitral regurgitation characterized as moderate. Not likely producing any symptoms currently. 4. SVT: I think the patient likely has a reentrant SVT on telemetry. I do not believe this is atrial fibrillation. His episodes are very brief generally lasting a few seconds to a minute. She does not appear to be symptomatic. Ideally we would give him a higher dose of metoprolol, but given his relative hypotension this is relatively contraindicated and not overtly necessary. 5. Coronary artery disease: The patient did undergo percutaneous intervention believed to involve the circumflex artery in October of 2017. This was after a reported cardiac arrest. He cannot recall symptoms of chest discomfort leading up to that event. Does have some chest discomfort now likely secondary to CPR. He is a very sedentary individual due to back pain and breathing difficulty. Did have an episode of chest discomfort yesterday associated with some transient ST segment changes on his EKG. This was concerning for ischemia. The symptoms however resolved without any particular intervention and lasted only a brief period of time. Ideally we would have his catheterization report but I think in any event a perfusion study in order to determine whether he benefits from any invasive evaluation would be reasonable he will be maintained on his aspirin, Plavix and atorvastatin. 6. Cardiac arrest: I do not have the details regarding his cardiac arrest but there is a mention of monomorphic ventricular tachycardia in his record. He did undergo stenting. Whether acute ischemia was the precipitating factor in his event is unclear. He may have scar mediated VT in which case a defibrillator may be more appropriate. Will attempt to obtain the records from that time frame to gain more insight in to the event and any treatments that are required. Currently is being maintained on a beta-kristyn. I do not think there is any role for antiarrhythmic currently.
[2017-12-29] MEDS ORDERED: HEPARIN SOD (PORCINE) 1000 UNIT/ML 10 ML VIAL IV SCH ×2 (16:15)
[2017-12-29] MEDS ORDERED: SODIUM CHLORIDE 0.9% 500 ML BAG IV ONE (16:44)
--- NOTE | 2017-12-29 18:53 | Progress Note ---
Subjective Date of Service: Dec 29, 2017. Subjective Pt evaluation today including: conversation w/ patient, physical exam, chart review, lab review, conversation w/ statistical consultant (cardiology, nephrology), review of inpatient medication list Pain: no chest pain overnight PO Intake: improved today Voiding: no voiding problems (he does not void due to ESRD ) tele stable overnight episodes of PAT he overall feels better today no dyspnea mild cough no recurrent chest pain no abdominal pain Review of Systems Constitutional: No fever, No chills Respiratory: No sputum, No hemoptysis Cardiac: No chest pain, No orthopnea, No PND, No edema Abdomen: No pain Objective Vital Signs Date Time Temp Pulse Resp B/P (MAP) Pulse Ox O2 Delivery O2 Flow Rate FiO2 12/29/17 15:45 36.3 60 18 125/57 (79) 96 Nasal Cannula 4.0 12/29/17 14:50 74 18 95 Nasal Cannula 4.0 12/29/17 14:24 97 99 12/29/17 11:36 37.2 81 20 130/65 (86) 98 Nasal Cannula 4.0 12/29/17 11:10 73 20 99 Nasal Cannula 4.0 12/29/17 08:00 96 Nasal Cannula 4.0 12/29/17 08:00 76 12/29/17 07:08 71 20 100 Nasal Cannula 4.0 12/29/17 06:57 36.5 72 16 116/55 (75) 95 12/29/17 04:15 37.2 74 18 113/56 (75) 98 12/28/17 23:52 36.8 99 24 108/51 (70) 98 Nasal Cannula 4.0 12/28/17 22:39 36.3 76 129/62 (84) 12/28/17 21:45 76 115/51 12/28/17 21:30 77 110/51 12/28/17 21:15 73 138/57 12/28/17 21:00 79 106/54 12/28/17 20:45 79 117/55 12/28/17 20:30 79 100/46 12/28/17 20:15 83 99/46 12/28/17 20:00 87 86/41 12/28/17 20:00 Nasal Cannula 4.0 12/28/17 19:45 89 110/52 12/28/17 19:30 85 95/28 12/28/17 19:15 83 100/43 12/28/17 19:00 80 97/45 12/28/17 18:53 77 20 91 Nasal Cannula 4.0 12/28/17 18:46 36.7 79 114/55 (74) Physical Exam General Appearance: no apparent distress, + thin ENT: pharynx normal Neck: no JVD (improved today) Respiratory/Chest: no respiratory distress, no accessory muscle use, + rales ( mild - bases) Cardiovascular: regular rate, rhythm, no gallop, + systolic murmur (2/6 LLSB ) Abdomen: normal bowel sounds, non tender, soft, no organomegaly Extremities: no pedal edema, + pertinent finding (LUE AV fistula ) Neurologic/Psychiatric: alert, oriented x 3 Laboratory Results Last 24 Hours Test 12/28/17 22:43 12/29/17 04:11 Troponin I 0.034 ng/ml 0.035 ng/ml White Blood Count 5.36 K/uL Red Blood Count 3.41 M/uL Hemoglobin 10.3 g/dL Hematocrit 32.9 % Mean Corpuscular Volume 96.5 fL Mean Corpuscular Hemoglobin 30.2 pg Mean Corpuscular Hemoglobin Concent 31.3 g/dl Platelet Count 106 K/uL Mean Platelet Volume 9.7 fL Neutrophils (%) (Auto) 71.2 % Lymphocytes (%) (Auto) 18.3 % Monocytes (%) (Auto) 9.3 % Eosinophils (%) (Auto) 0.4 % Basophils (%) (Auto) 0.4 % Neutrophils # (Auto) 3.82 K/uL Lymphocytes # (Auto) 0.98 K/uL Monocytes # (Auto) 0.50 K/uL Eosinophils # (Auto) 0.02 K/uL Basophils # (Auto) 0.02 K/uL RDW Standard Deviation 63.1 fL RDW Coefficient of Variation 17.9 % Immature Granulocyte % (Auto) 0.4 % Immature Granulocyte # (Auto) 0.02 K/uL Sodium Level 136 mmol/L Potassium Level 4.1 mmol/L Chloride Level 99 mmol/L Carbon Dioxide Level 27 mmol/L Anion Gap 10.0 mmol/L Blood Urea Nitrogen 25 mg/dl Creatinine 4.01 mg/dl Est Creatinine Clear Calc Drug Dose 14.3 ml/min Estimated GFR () 15.4 Estimated GFR (Non- 13.3 BUN/Creatinine Ratio 6.2 Random Glucose 101 mg/dl Calcium Level 8.0 mg/dl Assessment and Plan Complicated 77yo male with: 1. s/p code purple 12/28/17 - pre-syncopal event, possibly vagally mediated. No evidence of ACS although he had transient ischemic changes on his EKG during the event. Doubt IV contrast allergy. No dysrhythmia during the event. 2. suspected sepsis 2nd to right-sided pneumonia - blood cx's at [facility] are negative x 48 hours. Treating for RLL pneumonia with aztreonam and levaquin (due to PCN allergy). 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 Day #2/7 of antibiotics. Overall stable/improved. 3. abnormal EKG, chest pressure, h/o CAD - had transient chest pressure with EKG changes yesterday during code purple. Awaiting cardiac cath report from [facility]. Dr. Helton saw patient today and lexiscan nuclear stress test is planned for tomorrow AM. NPO after PR tonight. Cont asa, plavix, statin, BB, etc. 4. chronic hypoxic respiratory failure on home O2 - 2nd to Pulmonary HTN? Pulmonary fibrosis? Combination of both? On stress dose steroids (cortef). Cont 30mg daily for 1-2 more days then wean. 5. 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 HD tomorrow. 6. possible acute/chronic diastolic CHF - resolved; volume status looks good today. 7. h/o ITP - platelets stable at this time. 8. COPD - minimal exacerbation at this time; steroid taper. 9. hypothyroidism - continue synthroid; await [facility] records to see what most recent TSH was. 10. CAD s/p left circumflex stent by history - await records, see above discussion, cardiology consult. 11. DVT proph - heparin BID. 12. chronic relative hypotension - cont midodrine TID. 13. PAT - noted; no PAF. Continue BB. son, Irving, updated by phone 12/28/17 Continued [facility] stay due to: ambulation difficulties, multiple IV medications needed Discharge planning: uncertain
[2017-12-29] MEDS: ATORVASTATIN 40 MG TAB PO SCH (20:50)
[2017-12-29] MEDS: CLONAZEPAM 0.5 MG TAB PO SCH (21:02)
[2017-12-30] VITALS (23 sets, daily range): BP systolic 116–195; BP diastolic 54–92; PULSE 68–99; TEMP 36.3–37.3; O2SAT 94–97
[2017-12-30] MEDS ORDERED: NURSING VERBAL MED ORDER ONE (05:45)
[2017-12-30 06:08] LABS: BASO % 0.3 %; BASO ABS # 0.02 K/uL (0-0.2); EOS ABS # 0.12 K/uL (0-0.5); HEMATOCRIT 32.2 % (42-52); HEMOGLOBIN 9.9 g/dL (14.0-18.0); IG# 0.01 K/uL (0.00-0.02); LYMPH % 17.7 %; LYMPH ABS # 1.05 K/uL (1.2-3.4); MEAN CELL VOLUME 96.4 fL (80-100); MEAN CORPUSCULAR HEMOGLOBIN 29.6 pg (25-34); MEAN CORPUSCULAR HGB CONC 30.7 g/dl (32-36); MEAN PLATELET VOLUME 9.6 fL (7.4-10.4); MONO % 7.6 %; MONO ABS # 0.45 K/uL (0.11-0.59); NEUT % 72.2 %; NEUT ABS # 4.27 K/uL (1.4-6.5); PLATELET COUNT 101 K/uL (130-400); RED CELL DISTRIBUTION WIDTH CV 17.6 % (11.5-14.5); WHITE BLOOD COUNT 5.92 K/uL (4.8-10.8)
[2017-12-30] MEDS: MIDODRINE 10 MG TAB PO SCH ×4 (06:31→18:41)
[2017-12-30] MEDS: LEVOTHYROXINE 25 MCG TAB PO SCH (06:31)
[2017-12-30 06:45] LABS: CALCIUM 8.6 mg/dl (8.5-10.1); CREATININE 6.1 mg/dl (0.60-1.40); POTASSIUM 4.3 mmol/L (3.5-5.1)
[2017-12-30] MEDS: ALBUT/IPRATROP 3MG/0.5MG NEB 3 ML VIAL INH SCH ×4 (07:12→19:15)
[2017-12-30] MEDS: AZTREONAM IV 500 MG in DEXTROSE 5% 100ML 100 ML IV SCH ×5 (08:00→23:30)
--- NOTE | 2017-12-30 08:49 | Clinical Documentation Query ---
WENDY Bush : CLINICAL DOCUMENTATION QUERY Please document your clinical opinion regarding the POA status of the following diagnoses as neither were documented on admission. Thank you. In your clinical opinion is this patient being managed for: ( ) Sepsis due to pneumonia, POA (x ) Sepsis due to pneumonia, not POA ( ) Not Agree ( ) Other explanation of clinical findings (No explanation is considered a No Response) ( ) Unable to determine ( ) Need to Discuss (Phone CDS or qliq) (No discussion is considered a No Response) Please clarify and document your clinical opinion in the progress notes and discharge summary. Terms such as "probable", "suspected", "likely", "questionable", "possible", or "still to be ruled out" are acceptable. IF IN AGREEMENT, YOU MUST DOCUMENT ABOVE DIAGNOSTIC STATEMENT IN DAILY PROGRESS NOTES AND DISCHARGE SUMMARY. This document is not part of the patient's record. Thank You, Jer Reyes, RN [phone]
[2017-12-30] MEDS: ASCORBIC ACID 500 MG TAB PO SCH ×2 (09:00→21:32)
[2017-12-30] MEDS: HYDROCORTISONE 10 MG TAB PO SCH (09:00)
[2017-12-30] MEDS: ASPIRIN 81 MG ECTAB PO SCH (09:00)
[2017-12-30] MEDS: PANTOprazole SOD 40 MG TAB PO SCH (09:00)
[2017-12-30] MEDS: DOCUSATE SODIUM 100 MG CAP PO SCH ×2 (09:00→21:31)
[2017-12-30] MEDS: HEPARIN SOD 5000 UNIT/0.5 ML CARP SQ SCH ×2 (09:00→21:00)
[2017-12-30] MEDS: CLOPIDOGREL BISULFATE 75 MG TAB PO SCH (09:00)
[2017-12-30] MEDS: CARBIDOPA/LEVODOPA 50/200MG EXT REL TAB PO SCH (09:00)
[2017-12-30] MEDS: PRAMIPEXOLE DIHYDROCHLORIDE 0.5 MG TAB PO SCH (09:00)
[2017-12-30] MEDS: NEPHROCAPS PO SCH (09:00)
[2017-12-30] MEDS: METOPROLOL TARTRATE 25 MG TAB PO SCH ×2 (09:00→21:30)
--- NOTE | 2017-12-30 09:50 | Cardiology Follow-Up ---
Subjective Date of Service: Dec 30, 2017. Pt evaluation today including: conversation w/ patient, physical exam, chart review, lab review, review of studies, review of inpatient medication list History of Present Illness This morning the patient is feeling well. He states that he is at about his baseline with respect to breathing. He has ambulated around the room but not further. He denies any nausea. He has not had any additional symptoms of chest discomfort. He is anxious for dialysis today. Social History Smoking Status: Never Smoker History of Alcohol Use: No Review of Systems Respiratory: No sputum, No hemoptysis Cardiac: No chest pain, No orthopnea, No PND, No edema Per HPI. No recent nausea. Appears to be tolerating a diet well. Objective Vital Signs Past 12 Hours Date Time Temp Pulse Resp B/P (MAP) Pulse Ox O2 Delivery O2 Flow Rate FiO2 12/30/17 07:12 92 20 96 Nasal Cannula 4.0 12/30/17 06:54 36.3 76 18 140/70 (93) 94 4.0 12/30/17 06:54 76 18 12/30/17 04:21 37.0 87 22 116/62 (80) 94 4.0 12/29/17 23:12 36.9 76 16 148/65 (92) 97 Nasal Cannula 4.0 Last Recorded Weight-Kilograms: 65.500 Physical Exam The patient is alert and oriented. Mood and affect appeared normal. He answered all questions appropriately. HEENT: Pupils are equal and reactive to light and accommodation. Extraocular movements are intact. The sclerae are anicteric. Neuro: Cranial nerves intact Neck: Patient's neck is supple. He has palpable carotid pulses bilaterally without bruits on auscultation. There is no evidence of jugular venous distention. The thyroid is not enlarged. Lungs: Diffuse crackles throughout all lung denise with some expiratory wheezing. He has good air movement without use of accessory muscles. Cardiac: Heart demonstrates a regular rate and rhythm. Normal S1 and S2. Relatively low pitched in nearly holosystolic murmur in the right upper sternal area. Pulses: The patient has palpable radial pulses bilaterally that are equal in intensity Extremities: There was no evidence of hypoperfusion. There is no cyanosis or clubbing. There is no edema. AV fistula in the left forearm with palpable pulse and thrill. Skin: I did not appreciate any rashes on examination today. Data Laboratory Results: Last 24 Hours Test 12/30/17 05:38 White Blood Count 5.92 K/uL Red Blood Count 3.34 M/uL Hemoglobin 9.9 g/dL Hematocrit 32.2 % Mean Corpuscular Volume 96.4 fL Mean Corpuscular Hemoglobin 29.6 pg Mean Corpuscular Hemoglobin Concent 30.7 g/dl Platelet Count 101 K/uL Mean Platelet Volume 9.6 fL Neutrophils (%) (Auto) 72.2 % Lymphocytes (%) (Auto) 17.7 % Monocytes (%) (Auto) 7.6 % Eosinophils (%) (Auto) 2.0 % Basophils (%) (Auto) 0.3 % Neutrophils # (Auto) 4.27 K/uL Lymphocytes # (Auto) 1.05 K/uL Monocytes # (Auto) 0.45 K/uL Eosinophils # (Auto) 0.12 K/uL Basophils # (Auto) 0.02 K/uL RDW Standard Deviation 62.0 fL RDW Coefficient of Variation 17.6 % Immature Granulocyte % (Auto) 0.2 % Immature Granulocyte # (Auto) 0.01 K/uL Sodium Level 132 mmol/L Potassium Level 4.3 mmol/L Chloride Level 96 mmol/L Carbon Dioxide Level 24 mmol/L Anion Gap 12.0 mmol/L Blood Urea Nitrogen 49 mg/dl Creatinine 6.10 mg/dl Est Creatinine Clear Calc Drug Dose 9.1 ml/min Estimated GFR () 9.3 Estimated GFR (Non- 8.0 BUN/Creatinine Ratio 8.1 Random Glucose 90 mg/dl Calcium Level 8.6 mg/dl Telemetry reviewed: Mostly sinus rhythm with occasional episodes of appears to be a reentrant SVT. Assessment and Plan 1. Dyspnea: Seems to be about his baseline. He continues to have an abnormal lung exam. However, this likely represents his chronic pulmonary disease and possibly pneumonia.. 2. Diastolic heart failure: Scheduled again for dialysis today. Patient will be maintained at his predicted dry weight. Continue beta-kristyn. 3. Valvular heart disease: Stable. 4. SVT: Brief episodes without symptoms. An ideal world we would increase his beta-kristyn but given his known history of hypotension I do not think this is necessary. 5. Coronary artery disease: Some transient EKG changes associated with chest discomfort. Planning for cardiac perfusion study today. In the event that is normal I would not advocate any additional cardiac workup during this hospitalization unless he has new symptoms. Still awaiting records from [facility]. 6. Cardiac arrest: On beta-kristyn. No malignant arrhythmia noted on telemetry.
--- NOTE | 2017-12-30 11:10 | Nephrology Progress Note ---
Nephrology Progress Note Date of Service Dec 30, 2017. Chief Complaint ESRD on IHD Subjective Mr. Maier was seen & examined in preparation for HD this morning. He was breathing comfortably flat in bed on 4 L O2 NC. He denied fever, productive cough, hemoptysis or angina. Review of Systems Constitutional: No fever Cardiovascular: No chest pain Respiratory: No productive cough, No dyspnea at rest Abdomen: No pain, No nausea, No vomiting Extremities: No leg edema A complete review of systems was performed. Pertinent positives are noted above. All other systems are negative. Vital Signs Last 8 Hrs Date Time Temp Pulse Resp B/P (MAP) Pulse Ox O2 Delivery O2 Flow Rate FiO2 12/30/17 09:00 74 195/92 12/30/17 07:12 92 20 96 Nasal Cannula 4.0 12/30/17 06:54 36.3 76 18 140/70 (93) 94 4.0 12/30/17 06:54 76 18 12/30/17 04:21 37.0 87 22 116/62 (80) 94 4.0 Last Recorded Weight Weight (Kilograms): 65.500 Physical Exam General Appearance: no apparent distress Head: normocephalic, atraumatic Eyes: PERRL, EOMI Neck: no adenopathy Respiratory/Chest: lungs clear, no respiratory distress Cardiovascular: regular rate, rhythm Abdomen/GI: normal bowel sounds, non tender, soft Extremities/Musculoskelatal: no calf tenderness, no pedal edema Neurologic/Psych: alert Social History suffering from dementia Laboratory Results Past 24 Hours 12/30/17 05:38 Red Blood Count 3.34, Mean Corpuscular Volume 96.4, Mean Corpuscular Hemoglobin 29.6, Mean Corpuscular Hemoglobin Concent 30.7, Mean Platelet Volume 9.6, Neutrophils (%) (Auto) 72.2, Lymphocytes (%) (Auto) 17.7, Monocytes (%) (Auto) 7.6, Eosinophils (%) (Auto) 2.0, Basophils (%) (Auto) 0.3, Neutrophils # (Auto) 4.27, Lymphocytes # (Auto) 1.05, Monocytes # (Auto) 0.45, Eosinophils # (Auto) 0.12, Basophils # (Auto) 0.02 12/30/17 05:38 Test 12/30/17 05:38 White Blood Count 5.92 K/uL (4.8-10.8) Red Blood Count 3.34 M/uL (4.7-6.1) Hemoglobin 9.9 g/dL (14.0-18.0) Hematocrit 32.2 % (42-52) Mean Corpuscular Volume 96.4 fL (80-100) Mean Corpuscular Hemoglobin 29.6 pg (25-34) Mean Corpuscular Hemoglobin Concent 30.7 g/dl (32-36) Platelet Count 101 K/uL (130-400) Mean Platelet Volume 9.6 fL (7.4-10.4) Neutrophils (%) (Auto) 72.2 % Lymphocytes (%) (Auto) 17.7 % Monocytes (%) (Auto) 7.6 % Eosinophils (%) (Auto) 2.0 % Basophils (%) (Auto) 0.3 % Neutrophils # (Auto) 4.27 K/uL (1.4-6.5) Lymphocytes # (Auto) 1.05 K/uL (1.2-3.4) Monocytes # (Auto) 0.45 K/uL (0.11-0.59) Eosinophils # (Auto) 0.12 K/uL (0-0.5) Basophils # (Auto) 0.02 K/uL (0-0.2) RDW Standard Deviation 62.0 fL (36.4-46.3) RDW Coefficient of Variation 17.6 % (11.5-14.5) Immature Granulocyte % (Auto) 0.2 % Immature Granulocyte # (Auto) 0.01 K/uL (0.00-0.02) Anion Gap 12.0 mmol/L (3-11) Est Creatinine Clear Calc Drug Dose 9.1 ml/min Estimated GFR () 9.3 Estimated GFR (Non- 8.0 BUN/Creatinine Ratio 8.1 (10-20) Calcium Level 8.6 mg/dl (8.5-10.1) Allergies Coded Allergies: Penicillins (Unverified Allergy, Unknown, HIVES, 12/27/17) Medications Current Inpatient Medications Medications (Trade) Dose Ordered Sig/Crys Route Start Time Stop Time Status Last Admin Dose Admin Magnesium Hydroxide (Milk Of Magnesia Susp) 30 ml Q12H PRN PO 12/27/17 20:30 01/26/18 20:29 Ondansetron HCl (Zofran Inj) 4 mg Q6H PRN IV 12/27/17 20:30 01/26/18 20:29 Nitroglycerin (Nitrostat Tab) 0.4 mg UD PRN SL 12/27/17 20:30 01/26/18 20:29 Polyethylene (Miralax Powder Packet) 17 gm DAILY PRN PO 12/27/17 20:30 01/26/18 20:29 Acetaminophen (Tylenol Tab) 1,000 mg Q8H PRN PO 12/27/17 20:30 01/26/18 20:29 12/29/17 16:50 1,000 MG Ascorbic Acid (Vitamin C Tab) 500 mg BID PO 12/27/17 21:00 01/26/18 20:59 12/29/17 20:54 500 MG Aspirin (Ecotrin Tab) 81 mg DAILY PO 12/28/17 09:00 01/27/18 08:59 12/29/17 08:04 81 MG Atorvastatin Calcium (Lipitor Tab) 40 mg HS PO 12/27/17 21:00 01/26/18 20:59 12/29/17 20:50 40 MG Carbidopa/Levodopa (Sinemet Cr 50/ 200MG Tab) 1 tab DAILY PO 12/28/17 09:00 01/27/18 08:59 12/29/17 08:01 1 TAB Clonazepam (Klonopin Tab) 0.25 mg HS PO 12/27/17 21:00 01/26/18 20:59 12/29/17 21:02 0.25 MG Clopidogrel Bisulfate (plAVix TAB) 75 mg DAILY PO 12/28/17 09:00 01/27/18 08:59 12/29/17 08:01 75 MG Docusate Sodium (coLACE CAP) 100 mg BID PO 12/27/17 21:00 01/26/18 20:59 12/29/17 20:51 100 MG Levothyroxine Sodium (Synthroid Tab) 25 mcg DAILYBB PO 12/28/17 06:00 01/27/18 05:59 12/30/17 06:31 25 MCG Metoprolol Tartrate (Lopressor Tab) 12.5 mg BID PO 12/27/17 21:00 01/26/18 20:59 12/29/17 20:51 12.5 MG Midodrine (Proamatine Tab) 10 mg TID@0600,1200,1800 PO 12/28/17 06:00 01/27/18 05:59 12/30/17 06:32 10 MG Pantoprazole Sodium (Protonix Tab) 40 mg DAILY PO 12/28/17 09:00 01/27/18 08:59 12/29/17 08:02 40 MG Pramipexole Dihydrochloride (miraPEX TAB) 1 mg DAILY PO 12/28/17 09:00 01/27/18 08:59 12/29/17 08:02 1 MG Vitamin B Complex/ Vit C/Folic Acid (Nephrocaps) 1 cap DAILY PO 12/28/17 09:00 01/27/18 08:59 12/29/17 08:01 1 CAP Albuterol/ Ipratropium (Duoneb) 3 ml QIDR INH 12/28/17 08:00 01/27/18 07:59 12/30/17 07:12 3 ML Heparin Sodium (Porcine) (Heparin Sq 5000 Unit/0.5ml) 5,000 unit Q12 SQ 12/28/17 09:00 01/27/18 08:59 12/29/17 21:00 5,000 UNIT Ioversol (Optiray 320) 125 ml UD PRN IV 12/28/17 15:00 01/01/18 14:59 Aztreonam 500 mg/ Dextrose 105 ml @ 100 mls/hr Q8H IV 12/29/17 00:00 01/05/18 00:00 12/30/17 00:00 100 MLS/HR Levofloxacin 500 mg/Prmx 100 ml @ 100 mls/hr Q2D@1800 IV 12/30/17 18:00 01/04/18 17:59 Aztreonam (Consult) 1 ea UD PRN N/A 12/28/17 18:00 01/27/18 17:59 Levofloxacin (Consult) 1 ea UD PRN N/A 12/28/17 18:00 01/27/18 17:59 Hydrocortisone (Cortef Tab) 30 mg DAILY PO 12/30/17 09:00 01/29/18 08:59 Midodrine (Proamatine Tab) 10 mg MoWeFr@0600 PO 12/30/17 06:00 01/29/18 05:59 12/30/17 06:31 10 MG Impression (1) ESRD (end stage renal disease) on dialysis (2) Anemia (3) Shortness of breath (4) Chest pain (5) Coronary artery disease (6) Hypotension (7) Autonomic instability (8) Chronic lung disease (9) Granulomatosis with polyangiitis with renal involvement Mr. 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 He was admitted to [facility] with chest pain and shortness of breath. CXR, CT and CTA chest reveal notable chronic interstitial lung disease and possible pneumonia. The patient is being treated with aztreonam and Levaquin. TTE documented elevated right sided pressures and evidence of pulmonary HTN. Blood pressure and volume status appears appropriate. UF with HD complicated by intradialytic hypotension but 800 ml were able to be obtained yesterday evening. The patient is maintained on midodrine. Recommendations ESRD: -- HD today according to chronic outpatient orders -- EDW reported at 64.5 kg -- Renal diet -- Document I/O's and daily metabolic profile HYPOTENSION: -- Midodrine 10 mg preHD ANEMIA: -- Chronic, stable -- No need for additional KENDRA OTHER: -- Recent episode of SVT accompanied by transient elevation of cardiac enzymes and ECG changes. Await Cardiology input. Patient awaiting stress test
[2017-12-30] MEDS ORDERED: REGADENOSON 0.4 MG/5 ML SYR ONE (14:00)
[2017-12-30] MEDS ORDERED: LEVOFLOXACIN / D5W 500 MG in PREMIXED IN D5W 100 ML IV SCH (18:00)
[2017-12-30] MEDS: CLONAZEPAM 0.5 MG TAB PO SCH (21:29)
[2017-12-30] MEDS: ATORVASTATIN 40 MG TAB PO SCH (21:29)
--- NOTE | 2017-12-30 23:27 | Progress Note ---
Subjective Date of Service: Dec 30, 2017. Subjective Pt evaluation today including: conversation w/ patient, physical exam, chart review, lab review, review of studies (lexiscan), conversation w/ solutions architect consultant ( cardiology), review of inpatient medication list Pain: none; no chest pain PO Intake: poor today; was normal yesterday tele with runs of PAT but no a. [facility] had hemodialysis today and lexiscan nuclear stress test I saw him following the above procedures he reported feeling tired and had no appetite at dinner time this evening had one episode of blood-streaked sputum denied dyspnea at rest Review of Systems Constitutional: No fever, No chills Cardiac: No chest pain, No orthopnea, No PND, No edema Abdomen: + constipation, No pain, No nausea, No vomiting Objective Vital Signs Date Time Temp Pulse Resp B/P (MAP) Pulse Ox O2 Delivery O2 Flow Rate FiO2 12/30/17 19:40 37.0 99 18 122/63 (82) 95 Nasal Cannula 4.0 12/30/17 19:17 86 18 95 Nasal Cannula 4.0 12/30/17 18:15 37.3 76 16 155/63 (93) 97 Room Air 12/30/17 12:44 36.6 68 181/79 (113) 12/30/17 12:30 79 165/79 12/30/17 12:15 74 164/54 12/30/17 12:00 79 181/85 12/30/17 11:45 72 175/71 12/30/17 11:30 72 177/76 12/30/17 11:15 79 175/70 12/30/17 11:00 70 161/68 12/30/17 10:45 73 185/84 12/30/17 10:30 71 170/72 12/30/17 10:15 70 184/82 12/30/17 10:00 71 181/79 12/30/17 09:45 76 191/89 12/30/17 09:30 83 186/79 12/30/17 09:15 74 192/88 12/30/17 09:00 74 195/92 12/30/17 08:45 36.6 79 180/92 (121) 12/30/17 08:10 Room Air 12/30/17 07:12 92 20 96 Nasal Cannula 4.0 12/30/17 06:54 36.3 76 18 140/70 (93) 94 4.0 12/30/17 06:54 76 18 12/30/17 04:21 37.0 87 22 116/62 (80) 94 4.0 12/29/17 23:12 36.9 76 16 148/65 (92) 97 Nasal Cannula 4.0 Physical Exam General Appearance: no apparent distress ENT: pharynx normal Neck: + JVD (mild) Respiratory/Chest: no respiratory distress, no accessory muscle use, + rales ( faint, bases), + wheezing Cardiovascular: regular rate, rhythm, no gallop, + systolic murmur (2/6 LSB) Abdomen: normal bowel sounds, non tender, soft, no organomegaly Extremities: no pedal edema Neurologic/Psychiatric: alert Laboratory Results Last 24 Hours Test 12/30/17 05:38 White Blood Count 5.92 K/uL Red Blood Count 3.34 M/uL Hemoglobin 9.9 g/dL Hematocrit 32.2 % Mean Corpuscular Volume 96.4 fL Mean Corpuscular Hemoglobin 29.6 pg Mean Corpuscular Hemoglobin Concent 30.7 g/dl Platelet Count 101 K/uL Mean Platelet Volume 9.6 fL Neutrophils (%) (Auto) 72.2 % Lymphocytes (%) (Auto) 17.7 % Monocytes (%) (Auto) 7.6 % Eosinophils (%) (Auto) 2.0 % Basophils (%) (Auto) 0.3 % Neutrophils # (Auto) 4.27 K/uL Lymphocytes # (Auto) 1.05 K/uL Monocytes # (Auto) 0.45 K/uL Eosinophils # (Auto) 0.12 K/uL Basophils # (Auto) 0.02 K/uL RDW Standard Deviation 62.0 fL RDW Coefficient of Variation 17.6 % Immature Granulocyte % (Auto) 0.2 % Immature Granulocyte # (Auto) 0.01 K/uL Sodium Level 132 mmol/L Potassium Level 4.3 mmol/L Chloride Level 96 mmol/L Carbon Dioxide Level 24 mmol/L Anion Gap 12.0 mmol/L Blood Urea Nitrogen 49 mg/dl Creatinine 6.10 mg/dl Est Creatinine Clear Calc Drug Dose 9.1 ml/min Estimated GFR () 9.3 Estimated GFR (Non- 8.0 BUN/Creatinine Ratio 8.1 Random Glucose 90 mg/dl Calcium Level 8.6 mg/dl Assessment and Plan Complicated 77yo male with: 1. s/p code purple 12/28/17 - pre-syncopal event, possibly vagally mediated. No evidence of ACS although he had transient ischemic changes on his EKG during the event. Doubt IV contrast allergy. No dysrhythmia during the event. 2. sepsis 2nd to right-sided pneumonia, not POA - blood cx's [facility] negative. Treating for RLL pneumonia with aztreonam and levaquin (due to PCN allergy). 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 Day #3/7 of antibiotics. Overall stable/improved. Hemoptysis likely from this, but need to follow to ensure resolution. 3. abnormal EKG, chest pressure, h/o CAD - had transient chest pressure with EKG changes during code purple. Awaiting cardiac cath report from [facility]. Lexiscan nuclear stress test NEGATIVE for areas of ischemia. No further w/u (ie cath) at this time. Cont asa, plavix, statin, BB, etc. 4. chronic hypoxic respiratory failure on home O2 - 2nd to Pulmonary HTN? Pulmonary fibrosis? Combination of both? On stress dose steroids (cortef). Cont 30mg for 1 more day then wean. 5. 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 HD today. 6. possible acute/chronic diastolic CHF - resolved; volume status euvolemic by exam. 7. h/o ITP - platelets stable at this time. 8. COPD - minimal exacerbation - improved with stress dose steroids. 9. hypothyroidism - continue synthroid; check tsh in am. 10. CAD s/p left circumflex stent by history - await records from [place]. Lexiscan nuclear stress test today w/o ischemia. 11. DVT proph - heparin BID. 12. chronic relative hypotension - cont midodrine TID. 13. PAT - noted; no PAF. Continue BB. No symptoms from these PAT runs. Continue telemetry. PT eval appreciated; cleared for home await OT eval son, Irving, updated by phone 12/28/17 Continued [facility] stay due to: ambulation difficulties, multiple IV medications needed Discharge planning: home with home health
[2017-12-31] VITALS (13 sets, daily range): BP systolic 107–149; BP diastolic 46–77; PULSE 48–89; TEMP 36.7–37.2; O2SAT 92–99
[2017-12-31] MEDS: MIDODRINE 10 MG TAB PO SCH ×3 (06:00→11:35)
[2017-12-31] MEDS: LEVOTHYROXINE 25 MCG TAB PO SCH (06:00)
[2017-12-31] MEDS: PRAMIPEXOLE DIHYDROCHLORIDE 0.5 MG TAB PO SCH (06:02)
[2017-12-31] MEDS: ALBUT/IPRATROP 3MG/0.5MG NEB 3 ML VIAL INH SCH ×4 (06:52→19:14)
[2017-12-31] MEDS: AZTREONAM IV 500 MG in DEXTROSE 5% 100ML 100 ML IV SCH ×3 (08:48→23:29)
[2017-12-31] MEDS: HYDROCORTISONE 10 MG TAB PO SCH (08:48)
[2017-12-31] MEDS: CARBIDOPA/LEVODOPA 50/200MG EXT REL TAB PO SCH (08:48)
[2017-12-31] MEDS: NEPHROCAPS PO SCH (08:48)
[2017-12-31] MEDS: ASPIRIN 81 MG ECTAB PO SCH (08:48)
[2017-12-31] MEDS: METOPROLOL TARTRATE 25 MG TAB PO SCH ×2 (08:48→20:45)
[2017-12-31] MEDS: PANTOprazole SOD 40 MG TAB PO SCH (08:48)
[2017-12-31] MEDS: ASCORBIC ACID 500 MG TAB PO SCH ×2 (08:48→20:50)
[2017-12-31] MEDS: DOCUSATE SODIUM 100 MG CAP PO SCH ×2 (08:48→20:44)
[2017-12-31] MEDS: CLOPIDOGREL BISULFATE 75 MG TAB PO SCH (08:48)
[2017-12-31] MEDS: HEPARIN SOD 5000 UNIT/0.5 ML CARP SQ SCH ×2 (08:50→20:53)
--- NOTE | 2017-12-31 09:18 | Cardiology Follow-Up ---
Subjective Date of Service: Dec 31, 2017. Pt evaluation today including: conversation w/ patient, physical exam, chart review, lab review, review of studies, review of inpatient medication list History of Present Illness This morning the patient feels well. He is tired and fatigued. He was ambulatory around his room and had some mild dyspnea. He states that this is about his baseline for the past month. He does feel more tired slightly more winded since his hospitalization in October. The acute dyspnea which she had last Saturday appears to have resolved. He has not report dizziness or lightheadedness. He has not had any additional episodes of chest discomfort. He tolerated dialysis yesterday without any particular incident. Social History Smoking Status: Never Smoker History of Alcohol Use: No Review of Systems Respiratory: No sputum, No hemoptysis Cardiac: No chest pain, No orthopnea, No PND, No edema Per HPI. No recent nausea. Appears to be tolerating a diet well. Objective Vital Signs Past 12 Hours Date Time Temp Pulse Resp B/P (MAP) Pulse Ox O2 Delivery O2 Flow Rate FiO2 12/31/17 07:06 37.2 82 18 131/75 (93) 95 Nasal Cannula 4.0 Humidified Oxygen 12/31/17 07:04 37.2 82 18 131/75 (93) 95 4.0 12/31/17 06:52 78 18 96 Nasal Cannula 4.0 12/31/17 04:04 37.1 77 22 128/68 (88) 92 4.0 12/31/17 00:02 37.1 77 18 107/46 (66) 96 4.0 12/30/17 23:59 Nasal Cannula 4.0 Humidified Oxygen Last Recorded Weight-Kilograms: 65.000 Physical Exam The patient is alert and oriented. Mood and affect appeared normal. He answered all questions appropriately. HEENT: Pupils are equal and reactive to light and accommodation. Extraocular movements are intact. The sclerae are anicteric. Neuro: Cranial nerves intact Neck: Patient's neck is supple. He has palpable carotid pulses bilaterally without bruits on auscultation. There is no evidence of jugular venous distention. The thyroid is not enlarged. Lungs: Diffuse crackles throughout all lung denise with some expiratory wheezing. He has good air movement without use of accessory muscles. Cardiac: Heart demonstrates a regular rate and rhythm. Normal S1 and S2. Relatively low pitched in nearly holosystolic murmur in the right upper sternal area. Pulses: The patient has palpable radial pulses bilaterally that are equal in intensity Extremities: There was no evidence of hypoperfusion. There is no cyanosis or clubbing. There is no edema. AV fistula in the left forearm with palpable pulse and thrill. Skin: I did not appreciate any rashes on examination today. Data Laboratory Results: Last 24 Hours Test 12/31/17 05:38 Thyroid Stimulating Hormone (TSH) 2.970 uIu/ml Imaging: Cardiac perfusion study performed yesterday did not reveal any evidence of fixed or reversible ischemia. Telemetry reviewed: Sinus rhythm. No extended episodes of atrial arrhythmia Assessment and Plan 1. Dyspnea: Seems to be about his baseline. He continues to have an abnormal lung exam. However, this likely represents his chronic pulmonary disease and possibly pneumonia.. 2. Diastolic heart failure: Overall volume status appears to be quite good. His acute dyspnea seems to have resolved. Currently on beta-blockade. No concerns over hypertension. 3. Valvular heart disease: Stable. 4. SVT: Brief episodes without symptoms. Much improved over the course of last 24 hours. 5. Coronary artery disease: Patient did have some chest discomfort and dynamic ST segment changes subsequent to contrast administration. However, overall perfusion looks good. Does not appear to have angina at other times. I do not think this represents an allergy to contrast, but likely a vagally mediated response to the warmth and flushing associated with the contrast dye. 6. Cardiac arrest: On beta-kristyn. No malignant arrhythmia noted on telemetry. Still awaiting records from [facility]. At this point he would seem stable for discharge from a cardiac standpoint. He has a regular oxyacetylene cutter in [place] and additional outpatient management can be arranged closer to home.
--- NOTE | 2017-12-31 10:54 | Nephrology Progress Note ---
Nephrology Progress Note Date of Service Dec 31, 2017. Chief Complaint ESRD on IHD Subjective Mr. Maier was dialyzed yesterday for 3.5 hours w/ 1 L UF. He was hypertensive throughout treatment but had no other complications. Mr. Maier denies angina or arrhythmia overnight. He reports that his dyspnea is improved. He is scheduled for PT/OT later this morning. Review of Systems Constitutional: No fever Cardiovascular: No chest pain Respiratory: No dyspnea at rest Abdomen: No pain, No nausea, No vomiting Extremities: No leg edema A complete review of systems was performed. Pertinent positives are noted above. All other systems are negative. Vital Signs Last 8 Hrs Date Time Temp Pulse Resp B/P (MAP) Pulse Ox O2 Delivery O2 Flow Rate FiO2 12/31/17 09:00 Nasal Cannula 4.0 12/31/17 07:06 37.2 82 18 131/75 (93) 95 Nasal Cannula 4.0 Humidified Oxygen 12/31/17 07:04 37.2 82 18 131/75 (93) 95 4.0 12/31/17 06:52 78 18 96 Nasal Cannula 4.0 12/31/17 04:04 37.1 77 22 128/68 (88) 92 4.0 Last Recorded Weight Weight (Kilograms): 65.000 Physical Exam General Appearance: no apparent distress Head: normocephalic, atraumatic Eyes: PERRL, EOMI Neck: no adenopathy Respiratory/Chest: lungs clear, no respiratory distress Cardiovascular: regular rate, rhythm Abdomen/GI: normal bowel sounds, non tender, soft Extremities/Musculoskelatal: no calf tenderness, no pedal edema, + pertinent finding Neurologic/Psych: alert, oriented x 3 Social History suffering from dementia Laboratory Results Past 24 Hours Test 12/31/17 05:38 Thyroid Stimulating Hormone (TSH) 2.970 uIu/ml (0.300-4.500) Allergies Coded Allergies: Penicillins (Unverified Allergy, Unknown, HIVES, 12/27/17) Medications Current Inpatient Medications Medications (Trade) Dose Ordered Sig/Crys Route Start Time Stop Time Status Last Admin Dose Admin Magnesium Hydroxide (Milk Of Magnesia Susp) 30 ml Q12H PRN PO 12/27/17 20:30 01/26/18 20:29 Ondansetron HCl (Zofran Inj) 4 mg Q6H PRN IV 12/27/17 20:30 01/26/18 20:29 Nitroglycerin (Nitrostat Tab) 0.4 mg UD PRN SL 12/27/17 20:30 01/26/18 20:29 Acetaminophen (Tylenol Tab) 1,000 mg Q8H PRN PO 12/27/17 20:30 01/26/18 20:29 12/29/17 16:50 1,000 MG Ascorbic Acid (Vitamin C Tab) 500 mg BID PO 12/27/17 21:00 01/26/18 20:59 12/31/17 08:48 500 MG Aspirin (Ecotrin Tab) 81 mg DAILY PO 12/28/17 09:00 01/27/18 08:59 12/31/17 08:48 81 MG Atorvastatin Calcium (Lipitor Tab) 40 mg HS PO 12/27/17 21:00 01/26/18 20:59 12/30/17 21:29 40 MG Carbidopa/Levodopa (Sinemet Cr 50/ 200MG Tab) 1 tab DAILY PO 12/28/17 09:00 01/27/18 08:59 12/31/17 08:48 1 TAB Clonazepam (Klonopin Tab) 0.25 mg HS PO 12/27/17 21:00 01/26/18 20:59 12/30/17 21:29 0.25 MG Clopidogrel Bisulfate (plAVix TAB) 75 mg DAILY PO 12/28/17 09:00 01/27/18 08:59 12/31/17 08:48 75 MG Docusate Sodium (coLACE CAP) 100 mg BID PO 12/27/17 21:00 01/26/18 20:59 12/31/17 08:48 100 MG Levothyroxine Sodium (Synthroid Tab) 25 mcg DAILYBB PO 12/28/17 06:00 01/27/18 05:59 12/31/17 06:00 25 MCG Metoprolol Tartrate (Lopressor Tab) 12.5 mg BID PO 12/27/17 21:00 01/26/18 20:59 12/31/17 08:48 12.5 MG Midodrine (Proamatine Tab) 10 mg TID@0600,1200,1800 PO 12/28/17 06:00 01/27/18 05:59 12/30/17 06:32 10 MG Pantoprazole Sodium (Protonix Tab) 40 mg DAILY PO 12/28/17 09:00 01/27/18 08:59 12/31/17 08:48 40 MG Pramipexole Dihydrochloride (miraPEX TAB) 1 mg DAILY PO 12/28/17 09:00 01/27/18 08:59 12/31/17 06:02 1 MG Vitamin B Complex/ Vit C/Folic Acid (Nephrocaps) 1 cap DAILY PO 12/28/17 09:00 01/27/18 08:59 12/31/17 08:48 1 CAP Albuterol/ Ipratropium (Duoneb) 3 ml QIDR INH 12/28/17 08:00 01/27/18 07:59 12/31/17 06:52 3 ML Heparin Sodium (Porcine) (Heparin Sq 5000 Unit/0.5ml) 5,000 unit Q12 SQ 12/28/17 09:00 01/27/18 08:59 12/31/17 08:50 5,000 UNIT Ioversol (Optiray 320) 125 ml UD PRN IV 12/28/17 15:00 01/01/18 14:59 Aztreonam 500 mg/ Dextrose 105 ml @ 100 mls/hr Q8H IV 12/29/17 00:00 01/05/18 00:00 12/31/17 08:48 100 MLS/HR Levofloxacin 500 mg/Prmx 100 ml @ 100 mls/hr Q2D@1800 IV 12/30/17 18:00 01/04/18 17:59 12/30/17 18:17 100 MLS/HR Aztreonam (Consult) 1 ea UD PRN N/A 12/28/17 18:00 01/27/18 17:59 Levofloxacin (Consult) 1 ea UD PRN N/A 12/28/17 18:00 01/27/18 17:59 Hydrocortisone (Cortef Tab) 30 mg DAILY PO 12/30/17 09:00 01/29/18 08:59 12/31/17 08:48 30 MG Midodrine (Proamatine Tab) 10 mg MoWeFr@0600 PO 12/30/17 06:00 01/29/18 05:59 12/30/17 06:31 10 MG Polyethylene (Miralax Powder Packet) 17 gm QAM PO 12/31/17 11:00 01/30/18 10:59 Senna (Senokot Tab) 17.2 mg QAM PO 12/31/17 11:00 01/30/18 10:59 Impression (1) ESRD (end stage renal disease) on dialysis (2) Anemia (3) Shortness of breath (4) Chest pain (5) Coronary artery disease (6) Hypotension (7) Autonomic instability (8) Chronic lung disease (9) Granulomatosis with polyangiitis with renal involvement Mr. 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 He was admitted to [facility] with chest pain and shortness of breath. CXR, CT and CTA chest reveal notable chronic interstitial lung disease and possible pneumonia. The patient is being treated with aztreonam and Levaquin. TTE documented elevated right sided pressures and evidence of pulmonary HTN. Patient has required midodrine due to autonomic insufficiency. Recommendations ESRD: -- Volume status and electrolyte balance are acceptable at this time. No acute indication for HD today. Will schedule next HD for am. -- EDW reported at 64.5 kg -- Renal diet -- Document I/O's and daily metabolic profile HYPOTENSION: -- Midodrine 10 mg preHD. Blood pressure was elevated during last treatment. Will monitor. May need to reduce Midodrine dose. ANEMIA: -- Chronic, stable -- No need for additional KENDRA OTHER: -- Cardiac stress test was negative for inducible ischemia -- Patient is on empiric antibiotic therapy for possible pneumonia
[2017-12-31] MEDS: POLYETHYLENE (MIRALAX) 17 GM PACK PO SCH (11:32)
[2017-12-31] MEDS: SENNA 8.6 MG TAB PO SCH (11:33)
--- NOTE | 2017-12-31 15:54 | MYOCARDIAL PERFUSION SCAN ---
ONE-DAY NUCLEAR MEDICINE TECHNETIUM-99M CARDIOLITE MYOCARDIAL PERFUSION SCAN CLINICAL HISTORY: This stress test is being performed because of complaints of exertional dyspnea. The patient has had an aortic valve replacement. COMPARISON: None. TECHNIQUE: For the stress portion of the study, 33 mCi of Technetium 99 m Cardiolite IV was injected at 03:35 pm on 12/30/2017. 30 minutes following the injection, imaging of the heart was performed in multiple projection. For the rest portion of the study, 10.5 mCi of Technetium 99 m Cardiolite was injected IV at 1:45 pm. One hour following the injection, imaging of the heart was performed in the same projections. For the stress portion of the study, 0.4 mg of Lexiscan was injected intravenously as per protocol. The patient did not experience chest discomfort. Initial EKG noted sinus rhythm with a left axis deviation, incomplete right bundle-branch block. There were no EKG changes over this baseline abnormality. Following the study, patient was hemodynamically stable without complaints. FINDINGS: The short axis, vertical long axis, and horizontal long axis images were reviewed in detail. There is normal myocardial perfusion at both stress and rest, thus excluding a prior myocardial infarction and stress-induced myocardial ischemia. Left ventricle demonstrates normal systolic function without segmental wall motion abnormalities. An estimated left ventricular ejection fraction is 63%. IMPRESSION: 1. No scintigraphic evidence of a prior myocardial infarction or stress-induced myocardial ischemia. 2. No Lexiscan induced chest pain. 3. No Lexiscan induced EKG changes. 4. Normal left ventricular systolic function without wall motion abnormality. Left ventricular ejection fraction is 63%.
--- NOTE | 2017-12-31 18:39 | Progress Note ---
Subjective Date of Service: Dec 31, 2017. Subjective Pt evaluation today including: conversation w/ patient, physical exam, chart review, lab review, review of inpatient medication list Pain: none PO Intake: improved; eating nearly 100% of meals tele with occasional run of PAT he overall feels better anxious to get home to his in [place] still with mild hemoptysis - has had more frequent episodes of this but fortunately the quantities are small denies dyspnea at rest has RENEE that is at baseline no chest pain no pleuritic pain Review of Systems Constitutional: No fever, No chills Respiratory: + cough, + sputum, + dyspnea on exertion, + hemoptysis Cardiac: No chest pain, No orthopnea, No PND, No edema Abdomen: No pain Objective Vital Signs Date Time Temp Pulse Resp B/P (MAP) Pulse Ox O2 Delivery O2 Flow Rate FiO2 12/31/17 16:00 Nasal Cannula 4.0 12/31/17 15:16 87 16 95 Nasal Cannula 4.0 12/31/17 15:09 36.7 89 19 148/77 (100) 97 Room Air 12/31/17 12:19 37.0 81 19 149/70 (96) 96 Nasal Cannula 4.0 12/31/17 11:12 77 16 98 Nasal Cannula 4.0 12/31/17 09:00 Nasal Cannula 4.0 12/31/17 07:06 37.2 82 18 131/75 (93) 95 Nasal Cannula 4.0 Humidified Oxygen 12/31/17 07:04 37.2 82 18 131/75 (93) 95 4.0 12/31/17 06:52 78 18 96 Nasal Cannula 4.0 12/31/17 04:04 37.1 77 22 128/68 (88) 92 4.0 12/31/17 00:02 37.1 77 18 107/46 (66) 96 4.0 12/30/17 23:59 Nasal Cannula 4.0 Humidified Oxygen 12/30/17 20:00 Nasal Cannula 4.0 12/30/17 19:40 37.0 99 18 122/63 (82) 95 Nasal Cannula 4.0 12/30/17 19:17 86 18 95 Nasal Cannula 4.0 Physical Exam General Appearance: no apparent distress ENT: pharynx normal Neck: no JVD Respiratory/Chest: lungs clear, no respiratory distress, no accessory muscle use, + rales (scant bases) Cardiovascular: regular rate, rhythm, no gallop, + systolic murmur (2/6 ) Abdomen: normal bowel sounds, non tender, soft, no organomegaly Extremities: no pedal edema Neurologic/Psychiatric: alert, oriented x 3 Laboratory Results Last 24 Hours Test 12/31/17 05:38 Thyroid Stimulating Hormone (TSH) 2.970 uIu/ml Assessment and Plan Complicated 77yo male with: 1. s/p code purple 12/28/17 - pre-syncopal event, possibly vagally mediated. Doubt IV contrast allergy as the event occurred in the setting of contrast administration. No dysrhythmia during the event. 2. sepsis 2nd to right-sided pneumonia, not POA - blood cx's at [facility] cont to remain negative. Treating for RLL pneumonia with aztreonam and levaquin (due to PCN allergy). Day #4/7 of antibiotics. Converting levaquin to oral form. Overall stable/improved. Hemoptysis likely from this, but need to follow to ensure resolution. Has h/o Gus's - could the hemoptysis be from such?? 3. abnormal EKG, chest pressure, h/o CAD - had transient chest pressure with EKG changes during code purple. Awaiting cardiac cath report from [facility]. Lexiscan nuclear stress test NEGATIVE for areas of ischemia. No further w/u (ie cath) at this time. Cont asa, plavix, statin, BB, etc. 4. chronic hypoxic respiratory failure on home O2 - 2nd to Pulmonary HTN? Pulmonary fibrosis? Combination of both? Wean cortef to 20mg daily in the am. 5. 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 See #2 above. Check sed rate, crp in am. 6. possible acute/chronic diastolic CHF - resolved; volume status euvolemic. 7. h/o ITP - platelets stable. 8. COPD - minimal exacerbation - improved with stress dose steroids. Wean to 20mg daily in the am. 9. hypothyroidism - continue synthroid; TSH wnl. 10. CAD s/p left circumflex stent by history - await records from [facility]. Lexiscan nuclear stress test w/o ischemia. 11. DVT proph - heparin BID. 12. chronic relative hypotension - cont midodrine TID. 13. PAT - noted; no PAF. Continue BB. No symptoms from these PAT runs. Continue telemetry. cleared for home by PT, OT social work aware of pt's who has dementia - they have confirmed she has caregivers at her home and she is ok Continued [facility] stay due to: ambulation difficulties, multiple IV medications needed Discharge planning: home with home health
[2017-12-31] MEDS: ATORVASTATIN 40 MG TAB PO SCH (20:44)
[2017-12-31] MEDS: CLONAZEPAM 0.5 MG TAB PO SCH (20:49)
[2018-01-01] VITALS (25 sets, daily range): BP systolic 106–148; BP diastolic 51–91; PULSE 68–89; TEMP 36.4–37; O2SAT 90–100
[2018-01-01] MEDS: LEVOTHYROXINE 25 MCG TAB PO SCH (05:51)
[2018-01-01 05:54] LABS: HEMATOCRIT 30.2 % (42-52); HEMOGLOBIN 9.7 g/dL (14.0-18.0); MEAN CELL VOLUME 95.3 fL (80-100); MEAN CORPUSCULAR HEMOGLOBIN 30.6 pg (25-34); MEAN CORPUSCULAR HGB CONC 32.1 g/dl (32-36); RED CELL DISTRIBUTION WIDTH CV 17.3 % (11.5-14.5); RED CELL DISTRIBUTION WIDTH SD 60.8 fL (36.4-46.3)
[2018-01-01] MEDS ORDERED: HEPARIN SOD (PORCINE) 1000 UNIT/ML 10 ML VIAL IV SCH (06:00)
[2018-01-01] MEDS ORDERED: EPOETIN ALFA 10,000 UNITS/ML VIAL IV. SCH (06:00)
[2018-01-01 06:33] LABS: CALCIUM 8.6 mg/dl (8.5-10.1); CREATININE 5.87 mg/dl (0.60-1.40); MEAN PLATELET VOLUME 9.6 fL (7.4-10.4); PLATELET COUNT 82 K/uL (130-400); POTASSIUM 4.8 mmol/L (3.5-5.1)
[2018-01-01] MEDS: ALBUT/IPRATROP 3MG/0.5MG NEB 3 ML VIAL INH SCH ×4 (07:13→19:25)
[2018-01-01] MEDS: AZTREONAM IV 500 MG in DEXTROSE 5% 100ML 100 ML IV SCH ×3 (08:20→23:50)
[2018-01-01] MEDS: MIDODRINE 10 MG TAB PO SCH ×4 (08:20→16:08)
[2018-01-01] MEDS: HEPARIN SOD (PORCINE) 1000 UNIT/ML 10 ML VIAL IV SCH ×4 (09:00→11:54)
[2018-01-01] MEDS: HEPARIN SOD 5000 UNIT/0.5 ML CARP SQ SCH ×2 (09:00→21:25)
--- NOTE | 2018-01-01 09:42 | Nephrology Progress Note ---
Nephrology Progress Note Date of Service Jan 01, 2018. Chief Complaint ESRD on IHD Subjective Mr. Maier was seen & examined in preparation for HD today. He reports that his breathing is improved. He is breathing comfortably on O2 at 4 L / min NC which is his normal chronic rate. Mr. Maier denies hemoptysis or fever. Review of Systems Constitutional: No fever Cardiovascular: No chest pain Respiratory: No productive cough, No dyspnea at rest Abdomen: No pain, No nausea, No vomiting Extremities: No leg edema Integumentary: No rash A complete review of systems was performed. Pertinent positives are noted above. All other systems are negative. Vital Signs Last 8 Hrs Date Time Temp Pulse Resp B/P (MAP) Pulse Ox O2 Delivery O2 Flow Rate FiO2 01/01/18 09:15 84 136/76 01/01/18 09:00 80 135/74 01/01/18 08:41 36.7 80 139/80 (99) 01/01/18 07:54 37.0 83 16 137/71 (93) 96 Nasal Cannula 01/01/18 07:14 78 20 90 Nasal Cannula 4.0 01/01/18 04:24 36.5 79 18 135/69 (91) 91 Nasal Cannula Last Recorded Weight Weight (Kilograms): 68.700 Physical Exam General Appearance: no apparent distress Head: normocephalic, atraumatic Eyes: PERRL, EOMI Neck: no adenopathy Respiratory/Chest: lungs clear, no respiratory distress Cardiovascular: regular rate, rhythm Abdomen/GI: normal bowel sounds, non tender, soft Extremities/Musculoskelatal: no calf tenderness, no pedal edema Neurologic/Psych: alert, oriented x 3 Social History suffering from dementia Laboratory Results Past 24 Hours 01/01/18 05:31 01/01/18 05:31 Test 01/01/18 05:31 Red Blood Count 3.17 M/uL (4.7-6.1) Mean Corpuscular Volume 95.3 fL (80-100) Mean Corpuscular Hemoglobin 30.6 pg (25-34) Mean Corpuscular Hemoglobin Concent 32.1 g/dl (32-36) RDW Standard Deviation 60.8 fL (36.4-46.3) RDW Coefficient of Variation 17.3 % (11.5-14.5) Mean Platelet Volume 9.6 fL (7.4-10.4) Platelet Estimate DECREASED Erythrocyte Sedimentation Rate 24 mm/hr (0-14) Anion Gap 9.0 mmol/L (3-11) Est Creatinine Clear Calc Drug Dose 9.7 ml/min Estimated GFR () 9.7 Estimated GFR (Non- 8.4 BUN/Creatinine Ratio 7.8 (10-20) Calcium Level 8.6 mg/dl (8.5-10.1) C-Reactive Protein 9.12 mg/dl (0-0.29) Allergies Coded Allergies: Penicillins (Unverified Allergy, Unknown, HIVES, 12/27/17) Medications Current Inpatient Medications Medications (Trade) Dose Ordered Sig/Crys Route Start Time Stop Time Status Last Admin Dose Admin Magnesium Hydroxide (Milk Of Magnesia Susp) 30 ml Q12H PRN PO 12/27/17 20:30 01/26/18 20:29 Ondansetron HCl (Zofran Inj) 4 mg Q6H PRN IV 12/27/17 20:30 01/26/18 20:29 Nitroglycerin (Nitrostat Tab) 0.4 mg UD PRN SL 12/27/17 20:30 01/26/18 20:29 Acetaminophen (Tylenol Tab) 1,000 mg Q8H PRN PO 12/27/17 20:30 01/26/18 20:29 12/29/17 16:50 1,000 MG Ascorbic Acid (Vitamin C Tab) 500 mg BID PO 12/27/17 21:00 01/26/18 20:59 12/31/17 20:50 500 MG Aspirin (Ecotrin Tab) 81 mg DAILY PO 12/28/17 09:00 01/27/18 08:59 12/31/17 08:48 81 MG Atorvastatin Calcium (Lipitor Tab) 40 mg HS PO 12/27/17 21:00 01/26/18 20:59 12/31/17 20:44 40 MG Carbidopa/Levodopa (Sinemet Cr 50/ 200MG Tab) 1 tab DAILY PO 12/28/17 09:00 01/27/18 08:59 12/31/17 08:48 1 TAB Clonazepam (Klonopin Tab) 0.25 mg HS PO 12/27/17 21:00 01/26/18 20:59 7/24/18 20:49 0.25 MG Clopidogrel Bisulfate (plAVix TAB) 75 mg DAILY PO 12/28/17 09:00 01/27/18 08:59 12/31/17 08:48 75 MG Docusate Sodium (coLACE CAP) 100 mg BID PO 12/27/17 21:00 01/26/18 20:59 12/31/17 20:44 100 MG Levothyroxine Sodium (Synthroid Tab) 25 mcg DAILYBB PO 12/28/17 06:00 01/27/18 05:59 01/01/18 05:51 25 MCG Metoprolol Tartrate (Lopressor Tab) 12.5 mg BID PO 12/27/17 21:00 01/26/18 20:59 12/31/17 20:45 12.5 MG Midodrine (Proamatine Tab) 10 mg TID@0600,1200,1800 PO 12/28/17 06:00 01/27/18 05:59 01/01/18 08:20 10 MG Pantoprazole Sodium (Protonix Tab) 40 mg DAILY PO 12/28/17 09:00 01/27/18 08:59 12/31/17 08:48 40 MG Pramipexole Dihydrochloride (miraPEX TAB) 1 mg DAILY PO 12/28/17 09:00 01/27/18 08:59 12/31/17 06:02 1 MG Vitamin B Complex/ Vit C/Folic Acid (Nephrocaps) 1 cap DAILY PO 12/28/17 09:00 01/27/18 08:59 12/31/17 08:48 1 CAP Albuterol/ Ipratropium (Duoneb) 3 ml QIDR INH 12/28/17 08:00 01/27/18 07:59 01/01/18 07:13 3 ML Heparin Sodium (Porcine) (Heparin Sq 5000 Unit/0.5ml) 5,000 unit Q12 SQ 12/28/17 09:00 01/27/18 08:59 12/31/17 20:53 5,000 UNIT Ioversol (Optiray 320) 125 ml UD PRN IV 12/28/17 15:00 01/01/18 14:59 Aztreonam 500 mg/ Dextrose 105 ml @ 100 mls/hr Q8H IV 12/29/17 00:00 01/05/18 00:00 01/01/18 08:20 100 MLS/HR Aztreonam (Consult) 1 ea UD PRN N/A 12/28/17 18:00 01/27/18 17:59 Levofloxacin (Consult) 1 ea UD PRN N/A 12/28/17 18:00 01/27/18 17:59 Midodrine (Proamatine Tab) 10 mg MoWeFr@0600 PO 12/30/17 06:00 01/29/18 05:59 12/30/17 06:31 10 MG Polyethylene (Miralax Powder Packet) 17 gm QAM PO 12/31/17 11:00 01/30/18 10:59 12/31/17 11:32 17 GM Senna (Senokot Tab) 17.2 mg QAM PO 12/31/17 11:00 01/30/18 10:59 12/31/17 11:33 17.2 MG Heparin Sodium (Porcine) (Heparin Iv Bolus) 2,000 unit TODAY@0600 IV 01/01/18 06:00 01/01/18 18:00 Heparin Sodium (Porcine) (Heparin Iv Bolus) 500 unit Q1H IV 01/01/18 06:00 01/01/18 09:59 Epoetin [place] (Procrit Inj) 10,000 units TODAY@0600 IV. 01/01/18 06:00 01/01/18 18:00 Levofloxacin (Levaquin Tab) 500 mg Q2D@1800 PO 01/01/18 18:00 01/04/18 17:59 Hydrocortisone (Cortef Tab) 20 mg DAILY PO 01/01/18 09:00 01/29/18 08:59 Impression (1) ESRD (end stage renal disease) on dialysis (2) Anemia (3) Shortness of breath (4) Chest pain (5) Coronary artery disease (6) Hypotension (7) Autonomic instability (8) Chronic lung disease (9) Granulomatosis with polyangiitis with renal involvement Mr. 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 He was admitted to [facility] with chest pain and shortness of breath. CXR, CT and CTA chest reveal notable chronic interstitial lung disease and possible pneumonia. The patient is being treated with aztreonam and Levaquin. TTE documented elevated right sided pressures and evidence of pulmonary HTN. Patient has required midodrine due to autonomic insufficiency. Recommendations ESRD: -- HD today. Orders have been entered into EMR and HD RN notified -- EDW reported at 64.5 kg. Will attempt 2 L UF w/ HD today -- Renal diet -- Document I/O's and daily metabolic profile HYPOTENSION: -- Midodrine is scheduled at 10 mg po TID. BP is currently acceptable. Will monitor ANEMIA: -- Hgb 9.7 this am. Will provide KENDRA w/ HD today OTHER: -- Cardiac stress test was negative for inducible ischemia -- Patient is on empiric antibiotic therapy for possible pneumonia
[2018-01-01] MEDS: POLYETHYLENE (MIRALAX) 17 GM PACK PO SCH (12:41)
[2018-01-01] MEDS: CLOPIDOGREL BISULFATE 75 MG TAB PO SCH (12:42)
[2018-01-01] MEDS: SENNA 8.6 MG TAB PO SCH (12:42)
[2018-01-01] MEDS: ASPIRIN 81 MG ECTAB PO SCH (12:42)
[2018-01-01] MEDS: PRAMIPEXOLE DIHYDROCHLORIDE 0.5 MG TAB PO SCH (12:42)
[2018-01-01] MEDS: PANTOprazole SOD 40 MG TAB PO SCH (12:42)
[2018-01-01] MEDS: DOCUSATE SODIUM 100 MG CAP PO SCH ×2 (12:43→21:00)
[2018-01-01] MEDS: NEPHROCAPS PO SCH (12:43)
[2018-01-01] MEDS: CARBIDOPA/LEVODOPA 50/200MG EXT REL TAB PO SCH (12:43)
[2018-01-01] MEDS: METOPROLOL TARTRATE 25 MG TAB PO SCH ×2 (12:43→21:22)
[2018-01-01] MEDS: HYDROCORTISONE 10 MG TAB PO SCH (12:43)
[2018-01-01] MEDS: ASCORBIC ACID 500 MG TAB PO SCH ×2 (12:43→21:22)
--- NOTE | 2018-01-01 15:50 | Progress Note ---
Subjective Date of Service: Jan 01, 2018. Subjective Pt evaluation today including: conversation w/ patient, conversation w/ family (son Joseph at bedside), physical exam, chart review, lab review, conversation w / specification consultant ([facility] [place] with physician tourist information assistant, Chantelle), review of inpatient medication list Pain: denies PO Intake: ate good breakfast tele stable overnight hemoptysis much better only 1 episode of scant blood-tinge today vs multiple episodes yesterday denies any dyspnea beyond his baseline amount of dyspnea feels good anxious to get home Review of Systems Constitutional: No fever Respiratory: + cough, + sputum, + wheezing, + dyspnea on exertion, + hemoptysis , No dyspnea at rest Cardiac: No chest pain, No orthopnea, No PND, No edema Abdomen: No pain Objective Vital Signs Date Time Temp Pulse Resp B/P (MAP) Pulse Ox O2 Delivery O2 Flow Rate FiO2 01/01/18 15:14 36.4 74 17 119/60 (79) 98 Nasal Cannula 4.0 01/01/18 12:30 36.5 68 147/83 (104) 01/01/18 12:15 80 146/79 01/01/18 12:00 78 148/80 01/01/18 11:53 36.5 81 16 144/81 (102) 96 Nasal Cannula 01/01/18 11:45 80 145/65 01/01/18 11:30 81 144/81 01/01/18 11:15 89 147/77 01/01/18 11:00 80 142/78 01/01/18 10:45 80 143/91 01/01/18 10:30 79 144/56 01/01/18 10:15 73 142/72 01/01/18 10:00 77 139/80 01/01/18 09:45 76 138/72 01/01/18 09:30 81 140/75 01/01/18 09:15 84 136/76 01/01/18 09:00 80 135/74 01/01/18 08:41 36.7 80 139/80 (99) 01/01/18 08:20 Nasal Cannula 4.0 01/01/18 07:54 37.0 83 16 137/71 (93) 96 Nasal Cannula 01/01/18 07:14 78 20 90 Nasal Cannula 4.0 01/01/18 04:24 36.5 79 18 135/69 (91) 91 Nasal Cannula 12/31/17 23:59 37.0 69 16 127/55 (79) 98 Nasal Cannula 4.0 12/31/17 20:00 Nasal Cannula 4.0 12/31/17 20:00 37.2 81 18 133/68 (89) 99 Nasal Cannula 4.0 12/31/17 19:05 78 20 99 Nasal Cannula 4.0 12/31/17 16:00 Nasal Cannula 4.0 Physical Exam General Appearance: no apparent distress ENT: pharynx normal Respiratory/Chest: no respiratory distress, no accessory muscle use, + rales ( minimal - bases), + wheezing Cardiovascular: regular rate, rhythm, no gallop, + systolic murmur (2/6 LSB) Abdomen: normal bowel sounds, non tender, soft, no organomegaly Extremities: no pedal edema Laboratory Results Last 24 Hours Test 01/01/18 05:31 White Blood Count 4.50 K/uL Red Blood Count 3.17 M/uL Hemoglobin 9.7 g/dL Hematocrit 30.2 % Mean Corpuscular Volume 95.3 fL Mean Corpuscular Hemoglobin 30.6 pg Mean Corpuscular Hemoglobin Concent 32.1 g/dl RDW Standard Deviation 60.8 fL RDW Coefficient of Variation 17.3 % Platelet Count 82 K/uL Mean Platelet Volume 9.6 fL Platelet Estimate DECREASED Erythrocyte Sedimentation Rate 24 mm/hr Sodium Level 130 mmol/L Potassium Level 4.8 mmol/L Chloride Level 96 mmol/L Carbon Dioxide Level 25 mmol/L Anion Gap 9.0 mmol/L Blood Urea Nitrogen 46 mg/dl Creatinine 5.87 mg/dl Est Creatinine Clear Calc Drug Dose 9.7 ml/min Estimated GFR () 9.7 Estimated GFR (Non- 8.4 BUN/Creatinine Ratio 7.8 Random Glucose 83 mg/dl Calcium Level 8.6 mg/dl C-Reactive Protein 9.12 mg/dl Assessment and Plan Complicated 77yo male with: 1. s/p code purple 12/28/17 - pre-syncopal event, possibly vagally mediated. Doubt IV contrast allergy as the event occurred in the setting of contrast administration. No dysrhythmia during the event. 2. sepsis 2nd to right-sided pneumonia, not POA - blood cx's at [facility] negative. Treating for RLL pneumonia with aztreonam and levaquin (due to PCN allergy). Day #5/7 of antibiotics. Overall stable/improved. Hemoptysis likely from this, but need to follow to ensure resolution. Has h/o Gus's - could the hemoptysis be from such?? I spoke with Chantelle, a physician tourist information assistant in Dr. Barksdale's pulmonary office in [place]. She confirmed a h/o pulm fibrosis, pulmonary HTN, etc. They did not mention Gus's affecting the lungs. F/u with Dr. Barksdale scheduled for next week. Will place CTA on CD-Rom for patient. 3. abnormal EKG, chest pressure, h/o CAD - had transient chest pressure with EKG changes during code purple. Still awaiting cardiac cath report from [facility]. Lexiscan nuclear stress test NEGATIVE for areas of ischemia. No further w/u (ie cath) at this time. Cont asa, plavix, statin, BB, etc. 4. chronic hypoxic respiratory failure on home O2 - 2nd to Pulmonary HTN and Pulmonary fibrosis. Cont steroid wean. pulmonary f/u next week. 5. 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 See #2 above. sed rate largely normal; CRP mildly elevated. 6. possible acute/chronic diastolic CHF - resolved; volume status euvolemic. 7. h/o ITP - platelets modestly worse today. repeat cbc in am. also check b12, folate. 8. COPD - minimal exacerbation - improved with stress dose steroids. Wean to 20mg daily today. 9. hypothyroidism - continue synthroid; TSH wnl. 10. CAD s/p left circumflex stent by history - await records from [place]. Lexiscan nuclear stress test w/o ischemia. 11. DVT proph - heparin BID. 12. chronic relative hypotension - cont midodrine TID. 13. PAT - noted; no PAF. Continue BB. No symptoms from these PAT runs. Continue telemetry. cleared for home by PT, OT social work aware of pt's who has dementia - they have confirmed she has caregivers at her home and she is ok Called and spoke with Dr. Barksdale's office in [place] (his pulmonary office). Spoke with his PA Chantelle. She confirmed he has secondary pulmonary HTN, that he has pulmonary fibrosis, and has been on chronic steroids since 2014. No office visit in quite some time. Office appointment given - January 07 - m - with Dr. Barksdale (in their [place] office). Fax # - [phone] anticipate d/c tomorrow AM Continued [facility] stay due to: multiple IV medications needed Discharge planning: home with home health
[2018-01-01] MEDS ORDERED: LEVOFLOXACIN 500 MG TAB PO SCH (18:00)
[2018-01-01] MEDS: ATORVASTATIN 40 MG TAB PO SCH (21:20)
[2018-01-01] MEDS: CLONAZEPAM 0.5 MG TAB PO SCH (21:26)
[2018-01-02 03:44] VITALS: BP 119/65; PULSE 78; TEMP 36.4; O2SAT 97
[2018-01-02 05:45] LABS: HEMATOCRIT 30.4 % (42-52); HEMOGLOBIN 9.6 g/dL (14.0-18.0); MEAN CELL VOLUME 95.6 fL (80-100); MEAN CORPUSCULAR HEMOGLOBIN 30.2 pg (25-34); MEAN CORPUSCULAR HGB CONC 31.6 g/dl (32-36); RED CELL DISTRIBUTION WIDTH CV 17.2 % (11.5-14.5); RED CELL DISTRIBUTION WIDTH SD 60.4 fL (36.4-46.3); WHITE BLOOD COUNT 4.19 K/uL (4.8-10.8)
[2018-01-02 05:46] LABS: MEAN PLATELET VOLUME 9.7 fL (7.4-10.4); PLATELET COUNT 81 K/uL (130-400)
[2018-01-02] MEDS: MIDODRINE 10 MG TAB PO SCH ×2 (06:00→12:00)
[2018-01-02] MEDS: LEVOTHYROXINE 25 MCG TAB PO SCH (06:01)
[2018-01-02 06:18] LABS: CALCIUM 8.8 mg/dl (8.5-10.1); CREATININE 4.24 mg/dl (0.60-1.40); POTASSIUM 4.6 mmol/L (3.5-5.1)
[2018-01-02] MEDS: ALBUT/IPRATROP 3MG/0.5MG NEB 3 ML VIAL INH SCH ×2 (06:51→11:03)
[2018-01-02 06:53] VITALS: PULSE 79; O2SAT 96
[2018-01-02 07:05] VITALS: BP 135/68; PULSE 81; TEMP 36.3; O2SAT 96
[2018-01-02] MEDS ORDERED: CYANOCOBALAMIN 500 MCG TAB (VIT B-12) PO SCH (09:00)
[2018-01-02] MEDS: HEPARIN SOD 5000 UNIT/0.5 ML CARP SQ SCH (09:00)
[2018-01-02] MEDS: POLYETHYLENE (MIRALAX) 17 GM PACK PO SCH (09:00)
[2018-01-02] MEDS: SENNA 8.6 MG TAB PO SCH (09:00)
[2018-01-02] MEDS: DOCUSATE SODIUM 100 MG CAP PO SCH (09:00)
[2018-01-02] MEDS: PRAMIPEXOLE DIHYDROCHLORIDE 0.5 MG TAB PO SCH (09:00)
--- NOTE | 2018-01-02 09:04 | DIAGNOSTIC IMAGING REPORT ---
CHEST 2 VIEWS ROUTINE CLINICAL HISTORY: RLL pneumonia, ILD, interval change COMPARISON STUDY: 12/27/2017 FINDINGS: Mild increase in cardiac size. Mild increase in pulmonary vasculature. Diaphragms are smooth. There are small bilateral pleural effusions. IMPRESSION: Congestive failure versus pulmonary edema slightly increased in prominence from the prior study. The above report was generated using voice recognition software. It may contain grammatical, syntax or spelling errors. Electronically signed by: Tan Ponce M.D. 01/02/2018 8:46 AM Dictated Date/Time: 01/02/2018 8:44 AM
[2018-01-02] MEDS: AZTREONAM IV 500 MG in DEXTROSE 5% 100ML 100 ML IV SCH (09:41)
[2018-01-02] MEDS: CARBIDOPA/LEVODOPA 50/200MG EXT REL TAB PO SCH (09:44)
[2018-01-02] MEDS: METOPROLOL TARTRATE 25 MG TAB PO SCH (09:44)
[2018-01-02] MEDS: NEPHROCAPS PO SCH (09:44)
[2018-01-02] MEDS: PANTOprazole SOD 40 MG TAB PO SCH (09:44)
[2018-01-02] MEDS: HYDROCORTISONE 10 MG TAB PO SCH (09:44)
[2018-01-02] MEDS: ASPIRIN 81 MG ECTAB PO SCH (09:44)
[2018-01-02] MEDS: ASCORBIC ACID 500 MG TAB PO SCH (09:44)
[2018-01-02] MEDS: CLOPIDOGREL BISULFATE 75 MG TAB PO SCH (09:44)
--- NOTE | 2018-01-02 10:01 | Nephrology Progress Note ---
Nephrology Progress Note Date of Service Jan 02, 2018. Chief Complaint ESRD on IHD Subjective Mr. Maier was seen & examined in his hospital room this morning. He was dialyzed yesterday for 3.5 hours w/ 2 L UF. There were no complications during his treatment. He reports that he is breathing comfortably on his typical regimen of O2 at 4 L / min NC. Review of Systems Constitutional: No fever Cardiovascular: No chest pain Respiratory: No dyspnea at rest Abdomen: No pain, No nausea, No vomiting Extremities: No leg edema A complete review of systems was performed. Pertinent positives are noted above. All other systems are negative. Vital Signs Last 8 Hrs Date Time Temp Pulse Resp B/P (MAP) Pulse Ox O2 Delivery O2 Flow Rate FiO2 01/02/18 07:05 36.3 81 22 135/68 (90) 96 Nasal Cannula 4.0 01/02/18 06:53 79 18 96 Nasal Cannula 4.0 01/02/18 03:44 36.4 78 20 119/65 (83) 97 Nasal Cannula 4.0 Last Recorded Weight Weight (Kilograms): 67.300 Physical Exam General Appearance: no apparent distress Head: normocephalic, atraumatic Eyes: PERRL, EOMI Neck: no adenopathy Respiratory/Chest: lungs clear, no respiratory distress Cardiovascular: regular rate, rhythm Abdomen/GI: normal bowel sounds, non tender, soft Extremities/Musculoskelatal: no calf tenderness, no pedal edema Neurologic/Psych: alert, oriented x 3 Social History suffering from dementia Laboratory Results Past 24 Hours 01/02/18 05:07 01/02/18 05:07 Test 01/02/18 05:07 Red Blood Count 3.18 M/uL (4.7-6.1) Mean Corpuscular Volume 95.6 fL (80-100) Mean Corpuscular Hemoglobin 30.2 pg (25-34) Mean Corpuscular Hemoglobin Concent 31.6 g/dl (32-36) RDW Standard Deviation 60.4 fL (36.4-46.3) RDW Coefficient of Variation 17.2 % (11.5-14.5) Mean Platelet Volume 9.7 fL (7.4-10.4) Anion Gap 11.0 mmol/L (3-11) Est Creatinine Clear Calc Drug Dose 13.3 ml/min Estimated GFR () 14.4 Estimated GFR (Non- 12.4 BUN/Creatinine Ratio 7.2 (10-20) Calcium Level 8.8 mg/dl (8.5-10.1) Vitamin B12 Level 299 pg/mL (211-911) Folate > 24.00 ng/mL (>5.38) Allergies Coded Allergies: Penicillins (Unverified Allergy, Unknown, HIVES, 12/27/17) Medications Current Inpatient Medications Medications (Trade) Dose Ordered Sig/Crys Route Start Time Stop Time Status Last Admin Dose Admin Magnesium Hydroxide (Milk Of Magnesia Susp) 30 ml Q12H PRN PO 12/27/17 20:30 01/26/18 20:29 Ondansetron HCl (Zofran Inj) 4 mg Q6H PRN IV 12/27/17 20:30 01/26/18 20:29 Nitroglycerin (Nitrostat Tab) 0.4 mg UD PRN SL 12/27/17 20:30 01/26/18 20:29 Acetaminophen (Tylenol Tab) 1,000 mg Q8H PRN PO 12/27/17 20:30 01/26/18 20:29 12/29/17 16:50 1,000 MG Ascorbic Acid (Vitamin C Tab) 500 mg BID PO 12/27/17 21:00 01/26/18 20:59 01/02/18 09:44 500 MG Aspirin (Ecotrin Tab) 81 mg DAILY PO 12/28/17 09:00 01/27/18 08:59 01/02/18 09:44 81 MG Atorvastatin Calcium (Lipitor Tab) 40 mg HS PO 12/27/17 21:00 01/26/18 20:59 01/01/18 21:20 40 MG Carbidopa/Levodopa (Sinemet Cr 50/ 200MG Tab) 1 tab DAILY PO 12/28/17 09:00 01/27/18 08:59 01/02/18 09:44 1 TAB Clonazepam (Klonopin Tab) 0.25 mg HS PO 12/27/17 21:00 01/26/18 20:59 01/01/18 21:26 0.25 MG Clopidogrel Bisulfate (plAVix TAB) 75 mg DAILY PO 12/28/17 09:00 01/27/18 08:59 01/02/18 09:44 75 MG Docusate Sodium (coLACE CAP) 100 mg BID PO 12/27/17 21:00 01/26/18 20:59 01/01/18 12:43 100 MG Levothyroxine Sodium (Synthroid Tab) 25 mcg DAILYBB PO 12/28/17 06:00 01/27/18 05:59 01/02/18 06:01 25 MCG Metoprolol Tartrate (Lopressor Tab) 12.5 mg BID PO 12/27/17 21:00 01/26/18 20:59 01/02/18 09:44 12.5 MG Midodrine (Proamatine Tab) 10 mg TID@0600,1200,1800 PO 12/28/17 06:00 01/27/18 05:59 01/01/18 08:20 10 MG Pantoprazole Sodium (Protonix Tab) 40 mg DAILY PO 12/28/17 09:00 01/27/18 08:59 01/02/18 09:44 40 MG Pramipexole Dihydrochloride (miraPEX TAB) 1 mg DAILY PO 12/28/17 09:00 01/27/18 08:59 01/01/18 12:42 1 MG Vitamin B Complex/ Vit C/Folic Acid (Nephrocaps) 1 cap DAILY PO 12/28/17 09:00 01/27/18 08:59 01/02/18 09:44 1 CAP Albuterol/ Ipratropium (Duoneb) 3 ml QIDR INH 12/28/17 08:00 01/27/18 07:59 01/02/18 06:51 3 ML Heparin Sodium (Porcine) (Heparin Sq 5000 Unit/0.5ml) 5,000 unit Q12 SQ 12/28/17 09:00 01/27/18 08:59 01/01/18 21:25 5,000 UNIT Aztreonam 500 mg/ Dextrose 105 ml @ 100 mls/hr Q8H IV 12/29/17 00:00 01/05/18 00:00 01/02/18 09:41 100 MLS/HR Aztreonam (Consult) 1 ea UD PRN N/A 12/28/17 18:00 01/27/18 17:59 Levofloxacin (Consult) 1 ea UD PRN N/A 12/28/17 18:00 01/27/18 17:59 Midodrine (Proamatine Tab) 10 mg MoWeFr@0600 PO 12/30/17 06:00 01/29/18 05:59 12/30/17 06:31 10 MG Polyethylene (Miralax Powder Packet) 17 gm QAM PO 12/31/17 11:00 01/30/18 10:59 01/01/18 12:41 17 GM Senna (Senokot Tab) 17.2 mg QAM PO 12/31/17 11:00 01/30/18 10:59 01/01/18 12:42 17.2 MG Levofloxacin (Levaquin Tab) 500 mg Q2D@1800 PO 01/01/18 18:00 01/04/18 17:59 01/01/18 16:15 500 MG Hydrocortisone (Cortef Tab) 20 mg DAILY PO 01/01/18 09:00 01/29/18 08:59 01/02/18 09:44 20 MG Cyanocobalamin (Vitamin B-12 Tab) 1,000 mcg QAM PO 01/02/18 09:00 02/01/18 08:59 01/02/18 09:46 1,000 MCG Impression (1) ESRD (end stage renal disease) on dialysis (2) Anemia (3) Shortness of breath (4) Chest pain (5) Coronary artery disease (6) Hypotension (7) Autonomic instability (8) Chronic lung disease (9) Granulomatosis with polyangiitis with renal involvement Mr. 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 He was admitted to [facility] with chest pain and shortness of breath. CXR, CT and CTA chest reveal notable chronic interstitial lung disease and possible pneumonia. The patient is being treated with aztreonam and Levaquin. TTE documented elevated right sided pressures and evidence of pulmonary HTN. Patient has required midodrine due to autonomic insufficiency. Recommendations ESRD: -- Volume status and electrolyte balance are acceptable at this time. No acute indication for HD today. -- EDW reported at 64.5 kg. Will attempt 2 L UF w/ HD tommorow if still hospitalized -- Renal diet -- Document I/O's and daily metabolic profile HYPOTENSION: -- Midodrine is scheduled at 10 mg po TID. BP is currently acceptable. Will monitor ANEMIA: -- Hgb stable at 9.6 this am. Will provide KENDRA w/ HD tomorrow OTHER: -- Cardiac stress test was negative for inducible ischemia -- Patient is on empiric antibiotic therapy for possible pneumonia
[2018-01-02 11:04] VITALS: PULSE 63; O2SAT 98
[2018-01-02] MEDS ORDERED: SODIUM CHLORIDE 0.65% NA SOLN 45 ML (OCEAN) PRN (11:45)
[2018-01-02] MEDS ORDERED: MUPIROCIN 2% OINT 22 GM TUBE EXT SCH (11:45)
[2018-01-02 12:02] VITALS: BP 121/62; PULSE 85; TEMP 36.5; O2SAT 99
[2018-01-02] MEDS ORDERED: SALI0.6510 (12:34)
[2018-01-02] MEDS ORDERED: PRMT10 PO (12:34)
[2018-01-02] MEDS ORDERED: LACTCHW3 PO (12:34)
[2018-01-02] MEDS ORDERED: BCTRO EXT (12:34)
[2018-01-02] MEDS ORDERED: LVQ500 PO (12:34)
[2018-01-02] MEDS ORDERED: OXGN (12:34)
[2018-01-02] MEDS ORDERED: CYAN10005 PO (12:35)
--- NOTE | 2018-01-02 12:44 | Discharge Instructions ---
Discharge Instructions Date of Service Jan 02, 2018. Admission Reason for Admission: Fluid Overload in the lungs Discharge Discharge Diagnosis / Problem: Right lower lobe pneumonia, fluid overload - both improved Discharge Goals Goal(s): Learn about illness, Diagnostic testing, Therapeutic intervention Activity Recommendations Activity Limitations: resume your previous activity . Instructions / Follow-Up Instructions / Follow-Up From Dr. Garcia - 1. We treated you with IV antibiotics for pneumonia in the right lung. You have a few more days of antibiotic left. Please take - Levaquin (levofloxacin) 500mg -- dose #1 on Saturday, 01/03; dose #2 on Saturday, . Be sure to take each dose IN THE EVENING. 2. For "flare-up" of your pulmonary fibrosis we used larger amounts of steroids while hospitalized. Please do the following with your hydrocortisone ( cortef) - * take 20mg (2 tablets) on 01/03 and 2 tablets on 01/04 * on 01/05 please resume your normal dose of 10mg (1 tablet) 3. For your nosebleed - * please avoid picking the nose * place bactroban (mupiricin) ointment into both nostrils three times a day for 10 days * use the saline nasal spray frequently; ok to use every hour on the hour 4. Blood in your spit - this improved during your stay. It is possible that the blood was from the lungs (pneumonia) or due to your nosebleed or from some other process in your lungs. Please see your lung specialist as scheduled next week. 5. Be sure to give the CD with the CAT scan of your lungs to your lung specialist next week for them to review. 6. Be sure to give the CD with the echocardiogram to your slot service specialist the next time you see them. 7. Continue your oxygen 4 liters as previous. 8. Report for dialysis TOMORROW on Saturday for your normal dialysis session in [place]. 9. Follow-up - * see Dr. Bar[facility]dale in the [facility] in [place] next week as scheduled * see Dr. Ying as scheduled 10. Return to [facility] if - * you have worsening shortness of breath * you have chest pain * the blood in your sputum/spit gets worse * you have fever over 100.5 degrees * any other concerns Current Hospital Diet Patient's current hospital diet: AHA Diet (Heart Healthy), Low Sodium Diet (2gm Na), Renal Diet Discharge Diet Recommended Diet: Low Sodium Diet (2gm Na), Renal Diet Fluid Restriction: 1500 ml (6 cups) Procedures Procedures Performed: 1. CAT scan of the lungs showing NO blood clots. Right-lower lobe pneumonia. Chronic pulmonary fibrosis. 2. Echocardiogram - pulmonary hypertension, diastolic congestive heart failure, and bioprosthetic aortic valve with mild-moderate aortic regurgitation. 3. Lexiscan nuclear stress test - NORMAL. Pending Studies Studies pending at discharge: no Medical Emergencies . Who to Call and When: Medical Emergencies: If at any time you feel your situation is an emergency, please call 911 immediately. . Non-Emergent Contact Non-Emergency issues call your: Primary Care Provider, Transitions Manager, Furnace Clerk Call Non-Emergent contact if: temperature is above 100.5, you have any medication questions . . "Provider Documentation" section prepared by Renato Garcia. .
[2018-01-02] MEDS ORDERED: NTRGSL/4 UT (12:45)
[2018-01-02 12:57] VITALS: BP 121/62; PULSE 85; TEMP 36.5; O2SAT 99
[2018-01-03] MEDS ORDERED: EPOETIN ALFA 10,000 UNITS/ML VIAL IV. ONE (06:00)
[2018-01-03] MEDS ORDERED: HEPARIN SOD (PORCINE) 1000 UNIT/ML 10 ML VIAL IV SCH ×2 (06:00)
--- NOTE | 2018-01-12 08:31 | Discharge Summary ---
Discharge Summary Date of Service Jan 03, 2018. Discharge Summary Admission Date: Dec 27, 2017 at 19:21 Discharge Date: Jan 02, 2018 Discharge Disposition: Home Principal Diagnosis: sepsis 2nd to RLL pneumonia Problems/Secondary Diagnoses: 1. s/p code purple 12/28/17 - pre-syncopal event, possibly vagally mediated 2. chronic hypoxic respiratory failure on home O2, 4 L continuously 3. pulmonary HTN 4. pulmonary fibrosis 5. h/o Gus's Granulomatosis 6. CAD 7. abnormal EKG, chest pressure - no evidence of ACS, stress test negative 8. ESRD on HD, M/W/F 9. acute/chronic diastolic CHF 10. h/o ITP 11. COPD with mild exacerbation - resolving 12. hypothyroidism 13. chronic steroid dependency since 2014 14. paroxysmal atrial tachycardia - seen incidentally on monitoring, asymptomatic 15. s/p cardiac arrest 2018 with successful resuscitation 16. hyperlipidemia 17. hemoptysis - either 2nd to pneumonia or nose bleeding; cannot rule out Gus's as cause; follow-up advised 18. UMER 19. restless legs syndrome 20. hyponatremia 21. anemia likely 2nd to ESRD; cannot rule out component of vitamin B12 deficiency contributing Procedures: 1. CT chest, noncontrast: IMPRESSION: 1. Healing manubrial, external, and bilateral anterior rib fractures. No acute fractures identified. 2. No pneumothorax. 3. Mild diffuse interstitial thickening with groundglass appearance throughout the lungs. Findings favor a chronic interstitial lung disease. Developing congestive change or an atypical pneumonitis could also a similar appearance but are considered most likely. 4. Focal consolidation within the right lower lobe posteriorly. This may represent round atelectasis. A pneumonia could also have a similar appearance. 5. Multiple prominent mediastinal and left axillary lymph nodes. However, the majority of these are subcentimeter in short axis diameter. There is also a single enlarged lymph node within the left neck base. This could be due to chronic inflammatory/infectious change. A low-grade lymphoma is considered less likely but not entirely excluded. The partially visualized spleen appears be mildly enlarged. 2. CTA chest, PE protocol: IMPRESSION: 1. No evidence for pulmonary embolus with limitations as described above. 2. Otherwise, no significant change compared to the prior study. 3. Healing manubrial, sternal, and bilateral anterior rib fractures. No pneumothorax. 3. Mild diffuse interstitial thickening with groundglass appearance throughout the lungs. This may represent a chronic initial lung disease. Mild pulmonary edema or an atypical pneumonitis could also have a similar appearance. 4. No change in the focal consolidation within the right lower lobe posteriorly. This favors round atelectasis. A pneumonia could also a similar appearance. 6. Stable prominent mediastinal and left axillary lymph nodes. 3. Lexiscan Nuclear Stress Test: IMPRESSION: 1. No scintigraphic evidence of a prior myocardial infarction or stress- induced myocardial ischemia. 2. No Lexiscan induced chest pain. 3. No Lexiscan induced EKG changes. 4. Normal left ventricular systolic function without wall motion abnormality. Left ventricular ejection fraction is 63%. 4. echocardiogram: * -- Conclusions -- * There is mild concentric left ventricular hypertrophy. * Left ventricular systolic function is normal. * Moderate diastolic dysfunction * There is moderate mitral regurgitation. * Right ventricular systolic pressure is elevated at 50-60mmHg. * There is a percutaneous bioprosthetic aortic valve ([employer]tronic CoreValve) * The the gradients across the valve are moderately elevated * There is mild to moderate perivalvular regurgitation Consultations: nephrology - Indra Campa MD cardiology - Brad Helton MD PT, OT Medication Reconciliation New Medications: Cyanocobalamin (Vitamin B-12) 1,000 Mcg Tab 1000 MCG PO DAILY, #90 TAB 1 Refill Home O2 Therapy (Oxygen) Gas 4 LITERS NA CONTINOUS, #1 UNIT 0 Refills Lactobacillus (Lactinex) Chw 3 TAB PO TID for 7 Days, #63 CHW 0 Refills Nitroglycerin (Nitrostat) 0.4 Mg Tab 0.4 MG UT [id number] PRN for chest pain, #1 BTL 0 Refills max 3 doses in 15 minutes Levofloxacin (Levofloxacin) 500 Mg Tab 500 MG PO DIRECTED for 2 Days, #2 TAB 0 Refills take dose #1 on the evening of 01/03/18 and dose #2 on the evening of 01/05/18 then stop. Mupirocin (Mupirocin) 66 Appln/22 Gm Oint 1 APPLN EXT TID, #1 TUBE 0 Refills apply to both nostrils TID x 10 days Saline ([place] Nasal [place]) 0.65 % Spr 2 SPRAYS NA Q1H PRN for to moisten the nose/congestion, #1 BTL 0 Refills Changed Medications: Midodrine (Midodrine HCl) 10 Mg Tab 10 MG PO TID, #90 TABS 2 Refills (Changed from: Refills: ) Continued Medications: Acetaminophen (Tylenol) 500 Mg Tab 1000 MG PO for Pain, TAB Ascorbic Acid (Ascorbic Acid) 500 Mg Tab 300 MG PO BID, TAB Aspirin (Aspirin Ec) 81 Mg Tab 81 MG PO DAILY Atorvastatin (Lipitor) 40 Mg Tab 40 MG PO HS, TAB Carbidopa/Levodopa (Sinemet Cr 50MG/200MG) Tabcr 1 TAB PO DAILY, TAB Cholecalciferol (Vitamin D3) 2,000 Unit Cap 1 CAP PO DAILY for 30 Days, #30 CAP 3 Refills Clonazepam (Klonopin) 0.5 Mg Tab 0.25 MG PO HS for Anxiety, TAB Clopidogrel Bisulfate (Plavix) 75 Mg Tab 1 TAB PO DAILY for 90 Days, #90 TAB 1 Refill Docusate Sodium (Colace) 100 Mg Cap 1 CAP PO BID for 15 Days, #30 CAP Hydrocortisone (Cortef) 10 Mg Tab 10 MG PO DAILY, TAB Levothyroxine Sodium (Synthroid) 25 Mcg Tab 1 TAB PO DAILY for 30 Days, #30 TAB 5 Refills Metoprolol Tartrate (Lopressor) (Lopressor) 25 Mg Tab 12.5 MG PO BID, TAB Pantoprazole (Protonix) 40 Mg Tab 40 MG PO DAILY, #30 TAB Polyethylene Glycol 3350 (Miralax) 1 Pow Pow 17 GM PO DAILY for Constipation, #527 GM Pramipexole (Mirapex) 0.125 Mg Tab 1 MG PO DAILY, TAB Vitamin B Cmplx/Vitc/Folic Ac (Nephrocaps) Cap 1 CAP PO DAILY for 30 Days, #30 CAP 11 Refills Discharge Exam Physical Exam: General Appearance: no apparent distress ENT: pharynx normal, + pertinent finding (nares b/l with dried blood; nasal septum with visible tiny clot) Neck: no JVD Respiratory/Chest: no respiratory distress, no accessory muscle use, + crackles (b/l bases, worse on right), + wheezing (mild, occasional, b/l ) Cardiovascular: regular rate, rhythm, no gallop, normal peripheral pulses, + systolic murmur (2/6 LLSB) Abdomen / GI: normal bowel sounds, non tender, soft, no organomegaly Extremities: no pedal edema, + pertinent finding (LUE AV fistula with positive bruit & positive thrill ) Neurologic/Psychiatric: alert, oriented x 3 Skin: no rash Hospital Course HISTORY OF PRESENT ILLNESS: The patient is a 77 year old male with a past medical history of Chronic diastolic CHF, Pulmonary HTN, Pulmonary fibrosis, Gus's Granulomatosis, C Diff, ESRD on Hemodialysis MWF, Restless leg syndrome, Spinal Stenosis, ITP, COPD, UMER, and CAD with Cardiac arrest in October 2017 s/p stent of Circumflex Artery who presented as a transfer/direct admission from [facility] with worsening SOB following hemodialysis on the day of admission. The patient stated that he is normally short of breath and had been at his baseline since his cardiac arrest in October but on the afternoon of admission he developed a sudden shortness of breath that was associated with deep breaths. This also caused some right sided chest pain. The pain was not reproducible, was sharp in nature, did not radiate, and was constant. In the ED at [facility] the patient was found to have a significantly elevated BNP along with chest X-ray concerning for worsening congestive heart failure. The patient was transferred because dialysis would not be available at their facility over the weekend. The patient denied any fevers, chills, sweats, chest pain with exertion, or any other acute complaints. He did report some mild cough for several days preceding the shortness of breath. HOSPITAL COURSE: The patient's presenting complaints of worsening dyspnea, cough, and right- sided pleuritic chest discomfort was ultimately felt to be due to the RLL pneumonia seen on CT scanning. No PE was seen on the CTA contrast study. He never had evidence of ACS as multiple troponin levels were negative and lexiscan nuclear stress test was negative for ischemia. The patient was treated for gram negative pneumonia given his frequent hospitalizations and healthcare exposures. He received 5+ days of broad- spectrum IV antibiotic therapy and transitioned to oral levaquin at discharge. He also had a mild COPD exacerbation treated with steroids, and likely mild acute/chronic diastolic CHF treated with additional hemodialysis sessions. Blood cultures drawn at [facility] remained negative by report. Despite the pneumonia and mild COPD exacerbation he never required more oxygen than his baseline 4 liters. His stay was complicated by a "code purple" on the evening of 12/28/17 after he had undergone a CTA of the chest. It appears that the patient had a pre-syncopal event, possibly vagally mediated , after he had completed the study. He never lost consciousness. He had no evidence of dysrhythmia during or after the event and NO EVIDENCE of contrast allergy (he never had angioedema, rash, anaphylaxis, worsening dyspnea/ wheezing, etc). He did complain of a vague chest discomfort during the event which ultimately led to a cardiology consultation and the lexiscan nuclear stress test. The patient also complained intermittently of hemoptysis during the hospitalization. The quantity and frequency of the blood seen did improve with treatment of the pneumonia. About the time he reported the hemoptysis the patient was having nose-bleeding. It was undetermined if the hemoptysis was due to the epistaxis, his pneumonia, or some other pulmonary process (?Gus's). He was asked to use mupiricin and saline nasal spray to his nose for at least 1 week to help prevent additional epistaxis. The patient's CT scans of the chest were placed on CD-ROM for him and he was scheduled close follow-up with his primary latin professor in [place], Dr. Yuri Barksdale, to ensure resolution of the above symptoms. I am uncertain if this gentleman has active/recurrent Gus's Granulomatosis - again he needs very close follow-up to rule out such. Certainly the lymphadenopathy, splenomegaly, etc seen on CT scanning is concerning. By report the patient has a history of ITP and platelets ranged from about 80 to 150 while hospitalized. Folic acid level was normal, but vitamin B12 level was 299. I asked him to take OTC vitamin B12 1000mcg at least for 6 months. He will need a follow-up vitamin B12 level to ensure appropriate response to therapy. Repeat CBC in [place] is also advised to ensure stability of his platelet count. TSH was found to be normal while here. Lastly, the patient was seen in consult by PT/OT and deemed acceptable for discharge to home with his family in [place]. 01/02/18 05:07 01/02/18 05:07 Test 12/27/17 20:58 12/28/17 03:04 12/28/17 11:58 12/28/17 15:30 Phosphorus Level 3.3 mg/dl (2.5-4.9) Magnesium Level 2.3 mg/dl (1.8-2.4) Pro-B-Type Natriuretic Peptide > 44745 pg/ml (0-1800) Prothrombin Time 11.5 SECONDS (9.0-12.0) Prothromb Time International Ratio 1.1 (0.9-1.1) Hepatitis B Surface Antigen NEG (NEG) Hepatitis B Surface Antibody POS Bedside Glucose 160 mg/dl (70-99) Test 12/28/17 15:42 12/28/17 16:16 12/29/17 04:11 12/30/17 05:38 Total Bilirubin 0.6 mg/dl (0.2-1) Aspartate Amino Transf (AST/SGOT) 18 U/L (15-37) Alanine Aminotransferase (ALT/SGPT) 6 U/L (12-78) Alkaline Phosphatase 117 U/L (45-117) Total Protein 7.0 gm/dl (6.4-8.2) Albumin 3.0 gm/dl (3.4-5.0) Globulin 4.0 gm/dl (2.5-4.0) Albumin/Globulin Ratio 0.7 (0.9-2) Lactic Acid Level 2.7 mmol/L (0.4-2.0) Procalcitonin 1.35 ng/ml (0-0.5) Troponin I 0.035 ng/ml (0-0.045) Immature Granulocyte % (Auto) 0.2 % White Blood Count 5.92 K/uL (4.8-10.8) Red Blood Count 3.34 M/uL (4.7-6.1) Hemoglobin 9.9 g/dL (14.0-18.0) Hematocrit 32.2 % (42-52) Mean Corpuscular Volume 96.4 fL (80-100) Mean Corpuscular Hemoglobin 29.6 pg (25-34) Mean Corpuscular Hemoglobin Concent 30.7 g/dl (32-36) Platelet Count 101 K/uL (130-400) Mean Platelet Volume 9.6 fL (7.4-10.4) Neutrophils (%) (Auto) 72.2 % Lymphocytes (%) (Auto) 17.7 % Monocytes (%) (Auto) 7.6 % Eosinophils (%) (Auto) 2.0 % Basophils (%) (Auto) 0.3 % Neutrophils # (Auto) 4.27 K/uL (1.4-6.5) Lymphocytes # (Auto) 1.05 K/uL (1.2-3.4) Monocytes # (Auto) 0.45 K/uL (0.11-0.59) Eosinophils # (Auto) 0.12 K/uL (0-0.5) Basophils # (Auto) 0.02 K/uL (0-0.2) Immature Granulocyte # (Auto) 0.01 K/uL (0.00-0.02) Test 12/31/17 05:38 01/01/18 05:31 01/02/18 05:07 Thyroid Stimulating Hormone (TSH) 2.970 uIu/ml (0.300-4.500) Platelet Estimate DECREASED Erythrocyte Sedimentation Rate 24 mm/hr (0-14) C-Reactive Protein 9.12 mg/dl (0-0.29) Red Blood Count 3.18 M/uL (4.7-6.1) Mean Corpuscular Volume 95.6 fL (80-100) Mean Corpuscular Hemoglobin 30.2 pg (25-34) Mean Corpuscular Hemoglobin Concent 31.6 g/dl (32-36) RDW Standard Deviation 60.4 fL (36.4-46.3) RDW Coefficient of Variation 17.2 % (11.5-14.5) Mean Platelet Volume 9.7 fL (7.4-10.4) Anion Gap 11.0 mmol/L (3-11) Est Creatinine Clear Calc Drug Dose 13.3 ml/min Estimated GFR () 14.4 Estimated GFR (Non- 12.4 BUN/Creatinine Ratio 7.2 (10-20) Calcium Level 8.8 mg/dl (8.5-10.1) Vitamin B12 Level 299 pg/mL (211-911) Folate > 24.00 ng/mL (>5.38) Date/Time Source Procedure Growth Status 12/27/17 20:30 Nasal MRSA DNA Surveillance Screen - Final Specimen Negative for MRSA by DNA Probe Complete Total Time Spent: Greater than 30 minutes This includes examination of the patient, discharge planning, medication reconciliation, and communication with other providers. Discharge Instructions Please refer to the electronic Patient Visit Report (Discharge Instructions) for additional information. Follow-Up 1. Dr. Yuri Arreola [facility] in [place] - on SaturdayJanuary 07 at 11:15. 2. Dr. Corrine Ying's - SaturdayJanuary 08 at 2:30 pm. Additional Copies To Yuri Barksdale M.D.; Corrine Ying D.O.
--- NOTE | 2018-01-17 07:44 | EDITING REQUIRED CODING QUERY ---
CODING QUERY To promote full compliance with coding requirements relating to patient care, provider participation is requested in all cases of business planning manager uncertainty. Please assist us with the question(s) below: Coding Question(s): Sepsis is documented in the record and on the Discharge Summary. Please clarify below, regarding the present on admission status of Sepsis, as some Progress Notes show it to not be present on admission but, at the time of the Discharge Summary, it is unclear if this had changed. (x ) Sepsis, likely present on admission ( ) Sepsis, not likely xxx on admission ( ) Sepsis, undetermined if present on admission Physician's Response(s): Thank you Marie Gómez Principal Diagnosis: "_that condition established after study, to be chiefly responsible for occasioning the admission of the patient to the hospital for care." Co-Existing Principal Diagnosis: "_when two or more diagnoses equally meet the criteria for principal diagnosis as determined by the circumstances of admission, diagnostic work up, and/or therapy provided, and the Alphabetic Index, Tabular List, or another coding guideline does not provide sequencing direction, any one of the diagnoses may be sequenced first." "When the physician has documented what appears to be a current diagnosis in the body of the record, but has not included the diagnosis in the final diagnostic statement, the physician should be asked whether the diagnosis should be added." (Source Coding Clinic 2 QTR90. p3-4)
== END 2018-01-02 13:20 | disposition home or self-care (01) | DRG 871 ==
LOC: C.2E 19:21
PROVIDERS: ADMIT Family Medicine; ATTEND Internal Medicine
DX: A41.9 Sepsis, unspecified organism (principal); J15.6 Pneumonia due to other Gram-negative bacteria; I50.33 Acute on chronic diastolic (congestive) heart failure; N18.6 End stage renal disease; J96.11 Chronic respiratory failure with hypoxia; R04.2 Hemoptysis; J44.0 Chronic obstructive pulmonary disease with (acute) lower respiratory infection; J44.1 Chronic obstructive pulmonary disease with (acute) exacerbation; I47.1 Supraventricular tachycardia; M31.31 Wegener's granulomatosis with renal involvement; Z94.0 Kidney transplant status; E87.1 Hypo-osmolality and hyponatremia; I11.0 Hypertensive heart disease with heart failure; R55 Syncope and collapse; J84.10 Pulmonary fibrosis, unspecified; I27.20 Pulmonary hypertension, unspecified; I25.10 Atherosclerotic heart disease of native coronary artery without angina pectoris; I95.89 Other hypotension; G25.81 Restless legs syndrome; G47.33 Obstructive sleep apnea (adult) (pediatric); E03.9 Hypothyroidism, unspecified; K21.9 Gastro-esophageal reflux disease without esophagitis; D63.1 Anemia in chronic kidney disease; E53.8 Deficiency of other specified B group vitamins; Z51.81 Encounter for therapeutic drug level monitoring; Z79.899 Other long term (current) drug therapy; Z79.82 Long term (current) use of aspirin; Z79.02 Long term (current) use of antithrombotics/antiplatelets; Z79.52 Long term (current) use of systemic steroids; Z99.2 Dependence on renal dialysis; Z99.81 Dependence on supplemental oxygen; Z95.4 Presence of other heart-valve replacement; Z86.74 Personal history of sudden cardiac arrest; Z86.2 Personal history of diseases of the blood and blood-forming organs and certain disorders involving the immune mechanism; Z77.090 Contact with and (suspected) exposure to asbestos; Z88.0 Allergy status to penicillin